=== PATIENT | male | born 1940 | race Asian ===

== ENCOUNTER 2017-11-11 14:37 | Inpatient (IN) | payer MEDICARE, OTHER ==
[2017-11-11] VITALS (23 sets, daily range): BP systolic 101–144; BP diastolic 38–55
[~2017-11-11] VITALS: Ht 177.8 cm; Wt 89.4 kg
--- NOTE | 2017-11-11 14:45 | NUR ---
[facility] FOR HYPOTENSION PRIOR TO DIALYSIS. SEEN BY MD FOR EVAL. RT AT BS. NOTED WITH VENT/TRACH, WITH GTUBE, FLEXISEAL, WOUND DRESSINGS ON BLE. ETHEL MIDLINE 20G SINGLE LUMEN INDUSTRIAL ORDER CLERK. SAFETY AND COMFORT MEASURES PROVIDED. WILL MONITOR.
--- NOTE | 2017-11-11 15:13 | NUR ---
Trach pt received in ER and placed on on mechanical vent with settings per MD order. Pt trach is secure. Vent is plugged into a red outlet, alarms are set and audible, and BVM is at bedside. Addendum: 11/11/17 at 1515 by FRED CORBETT RT Amended: Links added.
[2017-11-11] MEDS ORDERED: CEFEPIME 1 GM in IV D5W 50 ML IV ONE (15:30)
[2017-11-11] MEDS ORDERED: IV NS 0.9% 1,000 ML BAG IV ONE (15:30)
[2017-11-11] MEDS ORDERED: VANCOMYCIN 1 GM in IV D5W 250 ML IV ONE (15:30)
[2017-11-11] MEDS ORDERED: NOREPINEPHRINE 8 MG in IV D5W 500 ML IV ONE (15:30)
--- NOTE | 2017-11-11 15:40 | NUR ---
LAB UNABLE TO DRAW BLOOD AND CULTURES. CHARGE NURSE MADE AWARE.
--- NOTE | 2017-11-11 16:01 | NUR ---
CALLED NURSING DATA ABSTRACTOR REQUESTING A PICC LINE.
[2017-11-11] MEDS ORDERED: CALCIUM CHLORIDE 1,000 MG/10 ML DISP.SYRIN ONE (16:15)
--- NOTE | 2017-11-11 16:23 | NUR ---
ICU 258
--- NOTE | 2017-11-11 16:25 | NUR ---
CALLED [facility] SPOKE TO MARYANNE, HE WILL FAX THE PATIENTS INFO.
--- NOTE | 2017-11-11 16:33 | NUR ---
RECEIVED VERBAL ORDERS FROM MD AT BS FOR CALCIUM AND BICARB IVP. ORDERS CARRIED OUT.
--- NOTE | 2017-11-11 16:41 | NUR ---
PICC LINE NURSE AT BS. TO SIGN THE PICC LINE CONSENT.
--- NOTE | 2017-11-11 16:44 | NUR ---
CALLED [facility] THEY WILL FAX THE PATIENTS INFO.
--- NOTE | 2017-11-11 17:00 | NUR ---
PICC LINE NURSE UNABLE TO INSERT A PICC LINE, RT CALLED FOR A CENTRAL LINE INSERTION BY DR SAM
--- NOTE | 2017-11-11 17:29 | NUR ---
CALLED [facility], HOSPITALIST PAGED.
[2017-11-11 17:43] LABS: BASOPHILS % (AUTO) 0.1 % (0.0-2.0); EOSINOPHILS % (AUTO) 1.5 % (0.0-6.0); HEMATOCRIT 29 % (39-51); HEMOGLOBIN 9.1 g/dL (13.5-17.5); LYMPHOCYTES # (AUTO) 1.8 /CMM (0.8-4.8); LYMPHOCYTES % (AUTO) 7.8 % (20.0-44.0); MEAN CORPUSCULAR HEMOGLOBIN 29 PG (26.0-33.0); MEAN CORPUSCULAR HGB CONC 32 g/dl (31.0-36.0); MEAN CORPUSCULAR VOLUME 93 fL (80-96); MONOCYTES # (AUTO) 0.8 /CMM (0.1-1.30); MONOCYTES % (AUTO) 3.4 % (2.0-12.0); NEUTROPHILS # (AUTO) 20.5 /CMM (1.8-8.9); NEUTROPHILS % (AUTO) 87.2 % (43.0-81.0); PLATELET COUNT (AUTO) 112 /CMM (150-450); RDW COEFFICIENT OF VARIATION 24.5 (11.5-15.0); RED BLOOD CELL COUNT(AUTO) 3.08 MIL/uL (4.5-6.0); WHITE BLOOD COUNT (AUTO) 23.5 K/uL (4.3-11.0)
[2017-11-11] MEDS ORDERED: INSU100V11 SQ (17:44)
[2017-11-11] MEDS ORDERED: ZINC220T GT (17:44)
[2017-11-11] MEDS ORDERED: VITA1TAB20 GT (17:44)
[2017-11-11] MEDS ORDERED: HYDR-552 GT (17:44)
[2017-11-11] MEDS ORDERED: ACET-868 GT (17:44)
[2017-11-11] MEDS ORDERED: AMIO200T4 GT (17:44)
[2017-11-11] MEDS ORDERED: ATOR20TA GT (17:44)
[2017-11-11] MEDS ORDERED: MULT-213 GT (17:44)
[2017-11-11] MEDS ORDERED: ASPI-1169 GT (17:44)
[2017-11-11] MEDS ORDERED: ASCO500T9 GT (17:44)
[2017-11-11] MEDS ORDERED: SEVE0.8P3 PO (17:44)
[2017-11-11] MEDS ORDERED: CALC667C6 GT (17:44)
[2017-11-11] MEDS ORDERED: LOPE2CAP GT (17:44)
[2017-11-11] MEDS ORDERED: CLOP75TA15 PO (17:44)
[2017-11-11] MEDS ORDERED: LABE100T5 GT (17:44)
--- NOTE | 2017-11-11 17:45 | NUR ---
REPORT GIVEN TO VIKAS NEWBERRY FOR ICU 258.
[2017-11-11 17:56] LABS: CALCIUM, SERUM 9.5 mg/dL (8.5-10.1); CARBON DIOXIDE 27 mmol/L (21-32); CHLORIDE 104 mmol/L (98-107); CREATININE 3.6 mg/dL (0.6-1.3); GLUCOSE 99 mg/dL (74-106); INR 1.3 (0.85-1.15); POTASSIUM 3.5 mmol/L (3.5-5.1); SODIUM SERUM 138 mmol/L (136-145); UREA NITROGEN, BLOOD 50 mg/dL (7-18)
[2017-11-11 18:01] LABS: ALANINE AMINOTRANSFERASE 11 U/L (12-78); ALBUMIN 1.6 g/dL (3.4-5.0); ALKALINE PHOSPHATASE 183 U/L (46-116); ASPARTATE AMINOTRANSFERASE 23 U/L (15-37); BILIRUBIN,DIRECT 0.3 mg/dL (0.0-0.2); BILIRUBIN,TOTAL 0.8 mg/dL (0.2-1.0); LIPASE 255 U/L (73-393); TOTAL PROTEIN, SERUM 5.1 g/dL (6.4-8.2)
[2017-11-11] MEDS ORDERED: NOREPINEPHRINE 8 MG in IV D5W 500 ML IV PRN (18:30)
[2017-11-11] MEDS ORDERED: ACETAMINOPHEN 650 MG/20.3 ML UDC GT PRN (18:30)
[2017-11-11] MEDS ORDERED: ONDANSETRON HCL/PF 4 MG/2 ML VIAL IVP PRN (18:30)
[2017-11-11] MEDS ORDERED: DEXTROSE 50%-WATER 50 ML DISP.SYRIN IV PRN (18:30)
[2017-11-11] MEDS ORDERED: ACETAMINOPHEN 325 MG TABLET PO PRN ×2 (18:30)
[2017-11-11] MEDS ORDERED: INSULIN REGULAR, HUMAN 100 UNIT/ML 3 ML VIAL SQ SCH (18:30)
[2017-11-11] MEDS: BLOOD SUGAR DIAGNOSTIC 1 EACH STRIP IN SCH ×2 (18:30→23:48)
[2017-11-11] MEDS ORDERED: FEE PK DOSING 1 MIN EA MC ONE (18:56)
[2017-11-11] MEDS ORDERED: LOPERAMIDE HCL UDC(2 MG/10 ML) 2 MG/10 ML UDC GT PRN (19:00)
[2017-11-11] MEDS: NOREPINEPHRINE 8 MG in IV D5W 500 ML IV PRN (19:00)
--- NOTE | 2017-11-11 19:00 | NUR ---
FINANCIAL ADMINISTRATION OFFICER NOTE RCVD PT ADMITTED FROM ER. PT NON-RESPONSIVE, ABLE TO OPEN EYES, NOT FOLLOWING COMMANDS, SR ON TELE. TOLERATING ORDERED VENT SETTINGS. PEG CLAMPED, FLEXISEAL IN PLACE DRAINING LIQUID BROWN STOOL. MULTIPLE WOUND PRESENT ON ADMISSION, PICTURES TAKEN PER PROTOCOL. RIGHT UPPER CHEST CENTRAL LINE IN PLACE DRESSING CHANGED. ETHEL # [address] PT'S CARE ENDORSED TO WIRE WHEELER RN FOR CONTINUITY OF CARE. BED IN LOW AND LOCKED POSITION. Addendum: 11/11/17 at 2001 by AMIE HARDY RN PT WAS HYPOTHERMIC ON ADMISSION BEAR RENNY ORDERED, LEVO INFUSING. SBP STABLE. KCI IN PLACE.
--- NOTE | 2017-11-11 19:30 | NUR ---
MEMBER SERVICE REPRESENTATIVE NOTE RESUMED ADMISSION OF THIS PATIENT. RECEIVED PATIENT IN BED, EYES CLOSED, PT NON-RESPONSIVE, ABLE TO OPEN EYES TO DEEP PAIN, NOT FOLLOWING COMMANDS, SR ON COOKING SHOW HOST WITH BBB. TRACH MIDLINE AND INTACT, SHILEY 8, TOLERATING ORDERED VENT SETTINGS. PEG CLAMPED, FLEXISEAL IN PLACE DRAINING LIQUID BROWN STOOL. MULTIPLE WOUND PRESENT ON ADMISSION, PICTURES TAKEN PER PROTOCOL. RIGHT UPPER CHEST CENTRAL LINE IN PLACE DRESSING C/D/I, LEVOPHED CURRENTLY INFUSING @ 12MCG/MIN. ETHEL #[address] FLUSHED WITH NS, FREE FROM ANY S/S OF INFILTRATION OR PHLEBITIS. CALL LIGHT LEFT WITHIN EASY REACH, BED IN LOWEST AND LOCKED POSITION. WILL CONTINUE TO CLOSELY MONITOR
[2017-11-11 20:00] LABS: BAND % (MANUAL) 3 % (0.0-5.0); EOSINOPHILS % (MANUAL) 2 % (0-4); LYMPHOCYTES % (MANUAL) 7 % (16-48); MONOCYTES % (MANUAL) 2 % (0-11.0); NEUTROPHILS % (MANUAL) 86 (42-76)
[2017-11-11] MEDS: INSULIN REGULAR, HUMAN 100 UNIT/ML 3 ML VIAL SQ PRN ×2 (20:23→23:50)
[2017-11-11] MEDS: PIPERACILLIN /TAZOBACTAM 2.25 G in IV D5W 50 ML IV SCH (20:25)
[2017-11-11] MEDS: SEVELAMER CARBONATE 0.8 GM POWD.PACK PO SCH (20:26)
[2017-11-11 20:38] LABS: TROPONIN I < 0.017 ng/mL (0.00-0.056)
--- NOTE | 2017-11-11 21:29 | NUR ---
RECEIVED PT TRACHED ON VENT. PT HAS SHLY 8. NO RESP DISTRESS. PT TOLERATING VENT SETTINGS. SX'D FOR SML AMT OF THIN WHITE SECRETIONS. VENT ALARMS SET AND AUDIBLE. TRACH SECURED, CUFF WATER PUMP OPERATOR. VENT PLUGGED INTO RED OUTLET. WILL CONTINUE TO MONITOR. Addendum: 11/11/17 at 2131 by ELIDIA ZAFAR RT Amended: Links added.
--- NOTE | 2017-11-11 22:03 | NUR ---
RN NOTES SPOKE TO DR PRETTY TO CLARIFY DIET ORDERS. AT [facility], PATIENT ON NEPRO @ 45ML/HR X16 HOURS DAILY. PER DR PRETTY, CONTINUE TUBE FEEDING. DR PRETTY ALSO NOTIFIED REGARDING URINE STUDIES ORDERED, PATIENT SEEMS ANURIC, NO URINE OUTPUT SINCE START OF SHIFT. DR PRETTY WITH ORDER TO SCAN BLADDER, AND OK TO INSERT IN & OUT ENAMORADO TO OBTAIN SAMPLE IF AMPLE URINE IN BLADDER. ALL ORDERS READ BACK FOR CLARIFICATION. WILL CARRY OUT ALL NEW ORDERS AND CONTINUE TO CLOSELY MONITOR
[2017-11-12] VITALS (91 sets, daily range): BP systolic 88–152; BP diastolic 34–70
[2017-11-12] MEDS ORDERED: PIPERACILLIN /TAZOBACTAM 3.375 G in IV D5W 50 ML IV SCH ×2
[2017-11-12] MEDS: NOREPINEPHRINE 8 MG in IV D5W 500 ML IV PRN (02:54)
--- NOTE | 2017-11-12 03:22 | NUR ---
RN NOTES CALLED CLAIMS VICE PRESIDENT PARIS TO FOLLOW UP REGARDING SPECIALTY MATTRESS, ORDER FAXED PREVIOUSLY. PER PARIS, THE SPECIALTY MATTRESS WILL BE AVAILABLE THIS MORNING AROUND 8AM-9AM. WILL CONTINUE TO CLOSELY MONITOR
[2017-11-12 05:08] LABS: BASOPHILS % (AUTO) 0.2 % (0.0-2.0); EOSINOPHILS % (AUTO) 0.8 % (0.0-6.0); HEMATOCRIT 27 % (39-51); HEMOGLOBIN 8.3 g/dL (13.5-17.5); LYMPHOCYTES # (AUTO) 1.1 /CMM (0.8-4.8); MEAN CORPUSCULAR HEMOGLOBIN 30 PG (26.0-33.0); MEAN CORPUSCULAR HGB CONC 31 g/dl (31.0-36.0); MEAN CORPUSCULAR VOLUME 94 fL (80-96); MONOCYTES # (AUTO) 0.5 /CMM (0.1-1.30); MONOCYTES % (AUTO) 2.2 % (2.0-12.0); NEUTROPHILS # (AUTO) 20.1 /CMM (1.8-8.9); NEUTROPHILS % (AUTO) 91.8 % (43.0-81.0); PLATELET COUNT (AUTO) 126 /CMM (150-450); RDW COEFFICIENT OF VARIATION 25.5 (11.5-15.0); RED BLOOD CELL COUNT(AUTO) 2.82 MIL/uL (4.5-6.0); WHITE BLOOD COUNT (AUTO) 21.9 K/uL (4.3-11.0)
[2017-11-12 05:13] LABS: CALCIUM, SERUM 9.1 mg/dL (8.5-10.1); CARBON DIOXIDE 26 mmol/L (21-32); CHLORIDE 101 mmol/L (98-107); CREATININE 3.7 mg/dL (0.6-1.3); GLUCOSE 156 mg/dL (74-106); MAGNESIUM 2.2 mg/dL (1.8-2.4); PHOSPHORUS 3.1 mg/dL (2.5-4.9); POTASSIUM 3.6 mmol/L (3.5-5.1); SODIUM SERUM 137 mmol/L (136-145); UREA NITROGEN, BLOOD 53 mg/dL (7-18)
[2017-11-12] MEDS: PIPERACILLIN /TAZOBACTAM 2.25 G in IV D5W 50 ML IV SCH ×3 (05:25→20:28)
[2017-11-12] MEDS: BLOOD SUGAR DIAGNOSTIC 1 EACH STRIP IN SCH ×4 (05:25→23:32)
[2017-11-12] MEDS: NEPRO 1,000 ML BOTTLE GT PRN ×2 (05:25→17:19)
[2017-11-12] MEDS: SEVELAMER CARBONATE 0.8 GM POWD.PACK PO SCH ×3 (05:25→20:28)
[2017-11-12 05:26] LABS: HDL CHOLESTEROL 19 mg/dL (40-60); LDL 10 mg/dL (0-99); THYROID STIMULATING HORMONE 13.515 uIU/mL (0.358-3.74); TRIGLYCERIDES 55 mg/dL (30-150)
[2017-11-12 05:27] LABS: CHOLESTEROL < 50 mg/dL (<200)
[2017-11-12] MEDS: INSULIN REGULAR, HUMAN 100 UNIT/ML 3 ML VIAL SQ PRN ×4 (05:30→23:35)
[2017-11-12 06:24] LABS: EOSINOPHILS % (MANUAL) 1 % (0-4); LYMPHOCYTES % (MANUAL) 4 % (16-48); MONOCYTES % (MANUAL) 1 % (0-11.0); NEUTROPHILS % (MANUAL) 94 (42-76)
--- NOTE | 2017-11-12 07:00 | NUR ---
RN NOTES PATIENT'S CORE TEMP 98.1, CONTINUES ON JUDIT HUGGER. CONTINUES ON LEVOPHED, CURRENTLY RUNNING @ 9MCG/MIN THROUGH THE RIGHT CHEST WALL TLC. NO URINE OUTPUT THROUGHOUT THE SHIFT, FLEXISEAL REMAINS IN PLACE, DRAINING WATERY BROWN STOOL. SPECIMEN COLLECTED AND SENT TO LAB. PATIENT STILL NEEDS SPECIALTY MATTRESS. PER BIOMATERIALS ENGINEER PARIS, SPECIALTY MATTRESS WILL BE AVAILABLE SOON CENTRAL SUPPLY STAFF WILL ARRIVE SHORTLY. WILL ENDORSE THE PATIENT TO THE AM SHIFT NURSE FOR CONTINUITY OF CARE.
--- NOTE | 2017-11-12 07:15 | NUR ---
PRODUCTION DIRECTOR NOTES RECEIVED PATIENT NON VERBAL , OPENS EYES , DOESN'T FOLLOW COMMANDS , RESPONSIVE TO PAIN STIMULI , NOT IN ACUTE DISTRESS , RESPIRATIONS EVEN AND UNLABORED WITH SPO2 OF 100% VIA MECHANICAL VENT SETTINGS ORDERED , TRACH OF SHILEY # [address] , SR 80 WITH BBB ON BEDSIDE MONITOR , GT PATENT AND INTACT WITH NEPHRO @ 45ML/HR TOLERATING WELL WITH NO RESIDUALS NOTED , FLEXI SEAL INTACT DRAINING VIA GRAVITY , RIGHT SUBCLAVIAN TLC WITH NS @ TKO, LEVOPHED @ 10MCG/MIN INFUSING WELL , KULDEEP AV SHUNT WITH BRUIT AND THRILL , ALL NEEDS ATTENDED , BED ON LOW AND LOCKED POSITION , SIDE RAILS X2 , CALL LIGHT WITHIN REACH , HOB @ 35 , WILL CONTINUE TO MONITOR ,
--- NOTE | 2017-11-12 08:30 | NUR ---
RT PATIENT REC'D TRACHED ON [facility] VENT WITH ORDERED SETTINGS. VENT ALARMS CHECKED + AUDIBLE. TRACH SECURE AND IN PROPER POSITION. AIRWAY SUCTIONED WITH MODERATE AMOUNT OF LOVE SEMITHICK SECRETIONS. B/S DIM COARSE. PATIENT NON VERBAL, NON RESPONSIVE, IN CRITICAL CONDITION. AMBU BAG AT HOB Addendum: 11/12/17 at 1309 by BRISEYDA BAH RT Amended: Links added.
[2017-11-12] MEDS: AMIODARONE HCL 200 MG TABLET GT SCH ×2 (08:56→17:19)
[2017-11-12] MEDS: CLOPIDOGREL BISULFATE 75 MG TABLET GT SCH (08:57)
[2017-11-12] MEDS: ASPIRIN 81 MG TAB.CHEW GT SCH (08:57)
[2017-11-12] MEDS: PANTOPRAZOLE 40 MG VIAL IV SCH (08:57)
[2017-11-12] MEDS: ZINC SULFATE 220 MG CAPSULE GT SCH (08:57)
[2017-11-12] MEDS: CALCIUM ACETATE 667 MG TABLET GT SCH ×3 (08:57→17:19)
[2017-11-12] MEDS: MULTIVIT, IRON, MIN NO. 8, FA 1 TAB GT SCH (08:57)
[2017-11-12] MEDS: ASCORBIC ACID 500 MG TABLET GT SCH ×2 (08:57→17:19)
[2017-11-12] MEDS: VITAMIN B COMP W-C 1 TAB TABLET GT SCH (08:57)
[2017-11-12] MEDS: HYDROCORTISONE SOD SUCCINATE 100 MG/2 ML VIAL IV SCH ×3 (09:09→17:20)
[2017-11-12 09:29] LABS: ABG BASE EXCESS -0.4 mmol/L; ABG OXYGEN SATURATION 86.8 % (92.0-98.5); ABG PCO2 30.5 mmHg (35.0-45.0); ABG PH 7.487 (7.350-7.450); ABG PO2 50.7 mmHg (75.0-100.0); COHb 0.3 % (0.5-1.5); O2Hb 85.7 % (94.0-97.0); SITE, ABG Left Brachial
--- NOTE | 2017-11-12 09:45 | NUR ---
SYSTEMS LIBRARIAN NOTES PT STABLE PRIOR TO HD , VSS , ON LEVOPHED @ 16MCG/MIN ,AFEBRILE , WILL CONTINUE TO MONITOR
--- NOTE | 2017-11-12 10:21 | NUR ---
STORE ADMINISTRATOR NOTES JUDIT ALVA , PT CORE TEMP IS 98.1F
--- NOTE | 2017-11-12 10:21 | NUR ---
CABLE WORKER HELPER NOTES STOOL C DIFF SENT TO LAB
[2017-11-12] MEDS ORDERED: diphenhydrAMINE HCL 50 MG/ML VIAL IV PRN (12:00)
--- NOTE | 2017-11-12 12:30 | NUR ---
PACKAGING SALES REPRESENTATIVE NOTES PT STABLE S/P HD TOLERATED WELL , NO OUTPUT NOTED , ON LEVOPHED @ 16MCG/MIN , VANCOMYCIN POST HD HELD , VANCO THROUGH OF
[2017-11-12] MEDS: VANCOMYCIN HCL 125 MG/2.5 ML ORAL.SUSP GT SCH ×3 (12:44→23:22)
--- NOTE | 2017-11-12 20:33 | NUR ---
RECEIVED PT TRACHED ON VENT. PT HAS SHLY 8. NO RESP DISTRESS. PT TOLERATING VENT SETTINGS. SX'D FOR MOD AMT OF THIN WHITE SECRETIONS. VENT ALARMS SET AND AUDIBLE. TRACH SECURED, CUFF OIL OPERATOR. VENT PLUGGED INTO RED OUTLET. WILL CONTINUE TO MONITOR. Addendum: 11/12/17 at 2032 by ELIDIA ZAFAR RT Amended: Links added.
[2017-11-12] MEDS: ATORVASTATIN 10 MG TABLET GT SCH (21:42)
--- NOTE | 2017-11-12 23:00 | NUR ---
RN NOTES RECEIVED REPORT AND PATIENT FROM ROHITH STAUFFER. PATIENT IS CONNECTED TO MONITOR WITH CONTINUOUS VITAL SIGNS MONITORING. VS WNL. ON GTUBE FEEDING WITH HOB ELEVATED. WILL CONTINUE TO MONITOR
[2017-11-13] VITALS (33 sets, daily range): BP systolic 119–153; BP diastolic 52–79
[2017-11-13] MEDS: VANCOMYCIN HCL 125 MG/2.5 ML ORAL.SUSP GT SCH ×4 (05:08→23:24)
[2017-11-13] MEDS: PIPERACILLIN /TAZOBACTAM 2.25 G in IV D5W 50 ML IV SCH ×3 (05:08→21:12)
[2017-11-13] MEDS: SEVELAMER CARBONATE 0.8 GM POWD.PACK PO SCH ×3 (05:09→21:12)
[2017-11-13] MEDS: BLOOD SUGAR DIAGNOSTIC 1 EACH STRIP IN SCH ×4 (05:23→23:25)
[2017-11-13] MEDS: INSULIN REGULAR, HUMAN 100 UNIT/ML 3 ML VIAL SQ PRN ×4 (05:25→23:24)
[2017-11-13 06:43] LABS: HEMATOCRIT 23 % (39-51); HEMOGLOBIN 7.3 g/dL (13.5-17.5); LYMPHOCYTES # (AUTO) 0.9 /CMM (0.8-4.8); LYMPHOCYTES % (AUTO) 4.7 % (20.0-44.0); MEAN CORPUSCULAR HEMOGLOBIN 30 PG (26.0-33.0); MEAN CORPUSCULAR HGB CONC 31 g/dl (31.0-36.0); MEAN CORPUSCULAR VOLUME 95 fL (80-96); MONOCYTES # (AUTO) 0.2 /CMM (0.1-1.30); MONOCYTES % (AUTO) 0.9 % (2.0-12.0); NEUTROPHILS # (AUTO) 18.3 /CMM (1.8-8.9); NEUTROPHILS % (AUTO) 94.4 % (43.0-81.0); PLATELET COUNT (AUTO) 132 /CMM (150-450); RDW COEFFICIENT OF VARIATION 25.5 (11.5-15.0); RED BLOOD CELL COUNT(AUTO) 2.44 MIL/uL (4.5-6.0); WHITE BLOOD COUNT (AUTO) 19.4 K/uL (4.3-11.0)
[2017-11-13 07:07] LABS: CALCIUM, SERUM 8.5 mg/dL (8.5-10.1); CARBON DIOXIDE 27 mmol/L (21-32); CHLORIDE 102 mmol/L (98-107); CREATININE 3.2 mg/dL (0.6-1.3); GLUCOSE 266 mg/dL (74-106); MAGNESIUM 2.4 mg/dL (1.8-2.4); PHOSPHORUS 2.2 mg/dL (2.5-4.9); POTASSIUM 3.9 mmol/L (3.5-5.1); SODIUM SERUM 139 mmol/L (136-145); UREA NITROGEN, BLOOD 47 mg/dL (7-18)
--- NOTE | 2017-11-13 07:18 | NUR ---
CHRISTMAS TREE CONTRACTOR NOTES RECEIVED PATIENT NON VERBAL , OPENS EYES , DOESN'T FOLLOW COMMANDS , RESPONSIVE TO PAIN STIMULI , NOT IN ACUTE DISTRESS , RESPIRATIONS EVEN AND UNLABORED WITH SPO2 OF 100% VIA MECHANICAL VENT SETTINGS ORDERED , TRACH OF ELENALEY # [address] , SR 75 WITH BBB ON BEDSIDE MONITOR , GT PATENT AND INTACT WITH NEPHRO @ 45ML/HR TOLERATING WELL WITH NO RESIDUALS NOTED , FLEXI SEAL INTACT DRAINING VIA GRAVITY , RIGHT SUBCLAVIAN TLC WITH NS @ TKO, , KULDEEP AV SHUNT WITH BRUIT AND THRILL , ALL NEEDS ATTENDED , BED ON LOW AND LOCKED POSITION , SIDE RAILS X2 , CALL LIGHT WITHIN REACH , HOB @ 35 , WILL CONTINUE TO MONITOR ,
[2017-11-13] MEDS: MULTIVIT, IRON, MIN NO. 8, FA 1 TAB GT SCH (08:22)
[2017-11-13] MEDS: ASCORBIC ACID 500 MG TABLET GT SCH ×2 (08:22→16:23)
[2017-11-13] MEDS: HYDROCORTISONE SOD SUCCINATE 100 MG/2 ML VIAL IV SCH ×3 (08:22→16:24)
[2017-11-13] MEDS: CLOPIDOGREL BISULFATE 75 MG TABLET GT SCH ×2 (08:22→09:00)
[2017-11-13] MEDS: CALCIUM ACETATE 667 MG TABLET GT SCH ×3 (08:22→16:23)
[2017-11-13] MEDS: AMIODARONE HCL 200 MG TABLET GT SCH ×2 (08:22→16:24)
[2017-11-13] MEDS: ASPIRIN 81 MG TAB.CHEW GT SCH ×2 (08:22→09:00)
[2017-11-13] MEDS: VITAMIN B COMP W-C 1 TAB TABLET GT SCH (08:22)
[2017-11-13] MEDS: ZINC SULFATE 220 MG CAPSULE GT SCH (08:25)
[2017-11-13] MEDS: PANTOPRAZOLE 40 MG VIAL IV SCH (08:55)
[2017-11-13] MEDS ORDERED: *INSULIN REGULAR(HUMULIN R)HUM 100 UNIT/ML VIAL SQ PRN (09:00)
[2017-11-13] MEDS ORDERED: INSULIN REGULAR, HUMAN 100 UNIT/ML 3 ML VIAL SQ PRN (09:00)
[2017-11-13] MEDS ORDERED: DEXTROSE 50%-WATER 50 ML DISP.SYRIN IV PRN ×2 (09:00→09:30)
--- NOTE | 2017-11-13 09:00 | NUR ---
OCCUPATIONAL SAFETY SPECIALIST NOTES ASPIRIN AND PLAVIX ORDERED HELD , HGB IS DROPPING WITH NO ACTIVE BLEEDING NOTED , WILL CONTINUE TO MONITOR
--- NOTE | 2017-11-13 10:30 | NUR ---
HELP DESK SUPPORT NOTES SEEN AND EVALUATED BY DR ESPINOZA , DISCUSSED LABS , TOLERATING CURRENT VENT SETTINGS WITH NO DISTRESS , WITH ONGOING HD , OFF PRESSORS SINCE 11-12 , LENNYEBMD VERONICA AWARE .
[2017-11-13] MEDS ORDERED: BLOOD SUGAR DIAGNOSTIC 1 EACH STRIP VI SCH (12:00)
[2017-11-13 12:02] LABS: OCCULT BLOOD STOOL NEGATIVE (NEGATIVE)
--- NOTE | 2017-11-13 12:15 | NUR ---
PLATEN PRESS OPERATOR APPRENTICE NOTES PATIENT STABLE S/P HD , REMOVED 1500ML FLUIDS , VSS AFEBRILE BP OF 121/54 TOLERATED WELL , KULDEEP AV FISTULA DRESSING C/D/I WITH NO SIGNS OF ACTIVE BLEEDING , WILL ADMINISTER VANCOMYCIN POST HD ,
--- NOTE | 2017-11-13 13:33 | NUR ---
WILDLIFE PROTECTOR NOTES SEEN AND EVALUATED BY WILLOW URBINA , DISCUSSED LABS , HELD ASPIRIN AND PLAVIX DUE TO LOW H/H WITH NO SIGNS OF BLEEDING , S/P HD 1500 TOLERATED WELL , OFF PRESSORS @ 1600 11/12/17 , AFEBRILE , VSS , STOOL OB NEGATIVE , MD AWARE .
--- NOTE | 2017-11-13 13:46 | NUR ---
SWITCH BOX INSTALLER NOTES CALLED [facility] SPOKE WITH SIMONE , VERIFIED IF PT HAS ANY FAMILY MEMBERS TO CALL FOR A CONSENT , PER SIMONE PT HAS A RESPONSIBLE DEMOCRAT UNDER DR TIERRA MUNIZ , PAGED DR MUNIZ @ [phone] AND [phone] , AWAITING FOR CALL BACK
[2017-11-13] MEDS: DAKINS QUARTER STRENGTH (0.125%) 480 ML BOTTLE TOP SCH (14:16)
[2017-11-13] MEDS: VANCOMYCIN 500 MG in IV D5W 100 ML IV PRN (14:16)
[2017-11-13] MEDS ORDERED: NEUTRA PHOS 1 POWD.PACKET GT ONE (17:00)
[2017-11-13] MEDS ORDERED: Z GUARD REMEDY 4 OZ OINT TP PRN (17:30)
[2017-11-13] MEDS ORDERED: LIDOCAINE 1%-EPI 1:100,000 20 ML VIAL TP ONE (17:30)
--- NOTE | 2017-11-13 17:30 | NUR ---
TOURIST CABIN KEEPER NOTES WILLOW URBINA SIGNED THE PROCEDURE CONSENT FOR DEBRIDEMENT OF BILATERAL BUTTOCKS , SACRUM , GROIN , BILATERAL ELBOWS UPPER BACK , BILATERAL HANDS AND FINGER , PT HAS NO RELATIVES OR NEXT OF KIN, DR WALTER CRUZ SEEN AND EVALUATED THE PATIENT WOUNDS , AWAITING FOR WOUND TX ORDERES DR BHARDWAJ AT BEDSIDE FOR DEBRIDEMENT OF BILATERAL BUTTOCKS , SACRUM , GROIN , BILATERAL ELBOWS UPPER BACK , BILATERAL HANDS AND FINGER , DISCUSSED LABS , VSS , WILL CONTINUE TO MONITOR ,
--- NOTE | 2017-11-13 18:00 | NUR ---
ANIMAL HUSBANDMAN NOTES PT STABLE S/P DEBRIDEMENTOF BILATERAL BUTTOCKS , SACRUM , GROIN , BILATERAL ELBOWS UPPER BACK , BILATERAL HANDS AND FINGER , NOTED WITH MODERATED AMOUNT OF BLEEDING , DRESSING CHANGED , SACRAL WOUND CULTURE OBTAINED , LABELED AND SENT TO LAB , VSS , AWAITING FOR WOUND TX ORDERS
[2017-11-13] MEDS: NEPRO 1,000 ML BOTTLE GT PRN (18:38)
[2017-11-13] MEDS ORDERED: HYDROGEL DRESSING 90 GM TUBE TP PRN (19:00)
--- NOTE | 2017-11-13 19:00 | NUR ---
RN INITIAL NOTES RECEIVED THE PATIENT OBTUNDED ON BED, OPENS EYES TO PAIN STIMULI ONLY. ON VENT WITH SETTINGS AC 14, TV 550, FIO2 40%, PEEP 0, SHILEY 8, SATURATING WELL, NO S/S OF RESP DISTRESS. PT IS SR ON THE MONITOR, HR 90'S. FLEXISEAL IS INTACT WITH BROWN LIQUID STOOL NOTED. RIGHT UPPER AV FISTULA NOTED. PT IS ANURIC, ON DIAPERS. GT TO NEPRO @ 45MLS/HR, NO RESIDUALS. RIGHT SUBCLAVIAN TLC FLUSHED AND PATENT, NO S/S OF INFILTRATION/INFECTION, DRESSING CDI. BED LOW AND LOCKED, SIDERAILS UP, BED ALARM ON. WILL MONITOR CLOSELY
--- NOTE | 2017-11-13 20:04 | NUR ---
RECEIVED PT TRACHED ON VENT. PT HAS SHLY 8. NO RESP DISTRESS. PT TOLERATING VENT SETTINGS. SX'D FOR MOD AMT OF THIN WHITE SECRETIONS. VENT ALARMS SET AND AUDIBLE. TRACH SECURED, CUFF BROADCAST TRANSMITTER OPERATOR. VENT PLUGGED INTO RED OUTLET. WILL CONTINUE TO MONITOR. Addendum: 11/13/17 at 2007 by MARITO LOPEZ RT Amended: Links added.
[2017-11-13] MEDS: ATORVASTATIN 10 MG TABLET GT SCH (21:12)
[2017-11-14] VITALS (39 sets, daily range): BP systolic 120–155; BP diastolic 52–87
[2017-11-14 04:31] LABS: HEMATOCRIT 21 % (39-51); LYMPHOCYTES # (AUTO) 0.7 /CMM (0.8-4.8); LYMPHOCYTES % (AUTO) 3.6 % (20.0-44.0); MEAN CORPUSCULAR HEMOGLOBIN 30 PG (26.0-33.0); MEAN CORPUSCULAR HGB CONC 31 g/dl (31.0-36.0); MEAN CORPUSCULAR VOLUME 95 fL (80-96); MONOCYTES # (AUTO) 0.3 /CMM (0.1-1.30); MONOCYTES % (AUTO) 1.6 % (2.0-12.0); NEUTROPHILS # (AUTO) 17.4 /CMM (1.8-8.9); NEUTROPHILS % (AUTO) 94.8 % (43.0-81.0); PLATELET COUNT (AUTO) 164 /CMM (150-450); RDW COEFFICIENT OF VARIATION 25.3 (11.5-15.0); RED BLOOD CELL COUNT(AUTO) 2.19 MIL/uL (4.5-6.0); WHITE BLOOD COUNT (AUTO) 18.4 K/uL (4.3-11.0)
[2017-11-14 04:43] LABS: CARBON DIOXIDE 28 mmol/L (21-32); CHLORIDE 103 mmol/L (98-107); CREATININE 2.7 mg/dL (0.6-1.3); GLUCOSE 316 mg/dL (74-106); MAGNESIUM 2.5 mg/dL (1.8-2.4); PHOSPHORUS 2.1 mg/dL (2.5-4.9); POTASSIUM 3.8 mmol/L (3.5-5.1); SODIUM SERUM 140 mmol/L (136-145); UREA NITROGEN, BLOOD 43 mg/dL (7-18)
[2017-11-14 04:59] LABS: HEMOGLOBIN 6.5 g/dL (13.5-17.5)
[2017-11-14 05:00] LABS: NEUTROPHILS % (MANUAL) 97 (42-76)
[2017-11-14 05:01] LABS: LYMPHOCYTES % (MANUAL) 2 % (16-48); MONOCYTES % (MANUAL) 1 % (0-11.0)
[2017-11-14] MEDS: BLOOD SUGAR DIAGNOSTIC 1 EACH STRIP IN SCH ×3 (05:15→18:16)
[2017-11-14] MEDS: INSULIN REGULAR, HUMAN 100 UNIT/ML 3 ML VIAL SQ PRN ×3 (05:20→18:15)
[2017-11-14] MEDS: VANCOMYCIN HCL 125 MG/2.5 ML ORAL.SUSP GT SCH ×3 (05:21→17:16)
[2017-11-14] MEDS: SEVELAMER CARBONATE 0.8 GM POWD.PACK PO SCH ×3 (05:21→21:49)
[2017-11-14] MEDS: PIPERACILLIN /TAZOBACTAM 2.25 G in IV D5W 50 ML IV SCH ×3 (05:21→21:49)
--- NOTE | 2017-11-14 05:53 | NUR ---
RN NOTES DR PRETTY NOTIFIED OF HGB 6.5 AND HCT 21; PER MD, REPEAT STAT HGB/HCT. IF HGB < 7, TRANSFUSE 2 UNITS PRBC
--- NOTE | 2017-11-14 06:19 | NUR ---
RN NOTES PER DR PRETTY, IF HGB 6.7-6.9, GIVE 1 UNIT PRBC. IF HGB < 6.7, GIVE 2 UNITS PRBC
[2017-11-14 06:55] LABS: HEMOGLOBIN 6.4 g/dL (13.5-17.5)
--- NOTE | 2017-11-14 07:36 | NUR ---
HEMMER AUTOMATIC RECEIVED PATIENT FROM THE PREVIOUS SHIFT. PATENT IS IN BED. RESTING COMFORTABLY. NO ACUTE DISTRESS NOTED. EVEN AND NON LABORED BREATHING PATTERN. TRACH SITE CDI. SUCTION PROVIDED FOR CLEARANCE. VENT SETTINGS REVIEWED AND VERIFIED. TURNED AND REPOSITIONED FOR COMFORT AND WOUND PREVENTION. WILL CONTINUE TO MONITOR AND PROVIDE CARE.
[2017-11-14] MEDS: DAKINS QUARTER STRENGTH (0.125%) 480 ML BOTTLE TOP SCH (08:44)
[2017-11-14] MEDS: PANTOPRAZOLE 40 MG VIAL IV SCH (08:47)
[2017-11-14] MEDS: ZINC SULFATE 220 MG CAPSULE GT SCH (08:48)
[2017-11-14] MEDS: ASCORBIC ACID 500 MG TABLET GT SCH ×2 (08:48→17:14)
[2017-11-14] MEDS: CLOPIDOGREL BISULFATE 75 MG TABLET GT SCH (08:48)
[2017-11-14] MEDS: AMIODARONE HCL 200 MG TABLET GT SCH ×2 (08:48→17:22)
[2017-11-14] MEDS: ASPIRIN 81 MG TAB.CHEW GT SCH (08:48)
[2017-11-14] MEDS: HYDROCORTISONE SOD SUCCINATE 100 MG/2 ML VIAL IV SCH (08:48)
[2017-11-14] MEDS: VITAMIN B COMP W-C 1 TAB TABLET GT SCH (08:48)
[2017-11-14] MEDS: CALCIUM ACETATE 667 MG TABLET GT SCH ×3 (08:48→17:15)
[2017-11-14] MEDS: MULTIVIT, IRON, MIN NO. 8, FA 1 TAB GT SCH (08:48)
--- NOTE | 2017-11-14 09:35 | NUR ---
ENTRY LEVEL MANUFACTURING ENGINEER UNABLE TO CONTACT PATIENT'S FAMILY FOR BLOOD TRANSFUSION CONSENT. BLOOD TRANSFUSION CONSENT FOR MEDICAL NECESSITY SIGNED BY DR. BOWERS.
--- NOTE | 2017-11-14 10:09 | NUR ---
WOUND CARE CONSULT WOUND CARE RECEIVED CONSULT FOR MULTIPLE WOUNDS THROUGHOUT BODY. WOUND CARE WILL DEFER CONSULT AND ALL TREATMENT PLANS TO SURGICAL TEAM WHO ARE CURRENTLY FOLLOWING. PATIENT WITH ALDAIR AT 11, ALL PRESSURE ULCER PREVENTION MEASURES ARE NOTED TO BE IN PLACE. WILL SEE PRN.
--- NOTE | 2017-11-14 14:48 | NUR ---
PULL OUT OPERATOR TRANSFERRED THE PATIENT TO TELE LEVEL OF CARE ON STABLE CONDITIONS.
--- NOTE | 2017-11-14 15:20 | NUR ---
RN NOTES RECEIVED FROM ICU VIA STRETCHER ACCOMPANIED BY 2 ICU STAFF WITH RESPIRATORY DISTRESS OR SHORTNESS OF BREATH. BREATHING EVEN AND UNLABORED. VENT SETTING WELL TOLERATED. NO PHYSICAL MANIFESTATION OF PAIN OR DISCOMFORT. OBTUNDED, NO EYE CONTACT NOTED. STARTED FEEDING, HOB ELEVATED, TOLERATED WELL. G TUBE PATENT AND INTACT. ON FLEXISEAL DRAINING BROWN LIQUID STOOL. KEPT CLEAN AND DRY. WILL CONTINUE TO MONITOR.
[2017-11-14] MEDS ORDERED: NEUTRA PHOS 1 POWD.PACKET GT ONE (16:30)
[2017-11-14] MEDS: ATORVASTATIN 10 MG TABLET GT SCH (21:49)
[2017-11-14] MEDS ORDERED: INSULIN GLARGINE, 100 UNIT/ML CARTRIDGE SQ SCH (22:00)
[2017-11-15] VITALS: BP 122/57
[2017-11-15] MEDS: VANCOMYCIN HCL 125 MG/2.5 ML ORAL.SUSP GT SCH ×5 (00:49→23:56)
[2017-11-15] MEDS: BLOOD SUGAR DIAGNOSTIC 1 EACH STRIP IN SCH ×5 (00:49→23:56)
[2017-11-15] MEDS: INSULIN REGULAR, HUMAN 100 UNIT/ML 3 ML VIAL SQ PRN ×4 (00:58→18:20)
[2017-11-15 04:00] VITALS: BP 121/47
[2017-11-15] MEDS: SEVELAMER CARBONATE 0.8 GM POWD.PACK PO SCH ×3 (05:09→21:07)
[2017-11-15] MEDS: PIPERACILLIN /TAZOBACTAM 2.25 G in IV D5W 50 ML IV SCH ×3 (05:09→21:07)
[2017-11-15 06:48] LABS: BASOPHILS % (AUTO) 0.1 % (0.0-2.0); HEMATOCRIT 22 % (39-51); LYMPHOCYTES # (AUTO) 1.6 /CMM (0.8-4.8); LYMPHOCYTES % (AUTO) 9.9 % (20.0-44.0); MEAN CORPUSCULAR HEMOGLOBIN 30 PG (26.0-33.0); MEAN CORPUSCULAR HGB CONC 32 g/dl (31.0-36.0); MEAN CORPUSCULAR VOLUME 94 fL (80-96); MONOCYTES # (AUTO) 0.6 /CMM (0.1-1.30); MONOCYTES % (AUTO) 3.7 % (2.0-12.0); NEUTROPHILS # (AUTO) 13.5 /CMM (1.8-8.9); NEUTROPHILS % (AUTO) 86.3 % (43.0-81.0); PLATELET COUNT (AUTO) 175 /CMM (150-450); RDW COEFFICIENT OF VARIATION 20.7 (11.5-15.0); RED BLOOD CELL COUNT(AUTO) 2.32 MIL/uL (4.5-6.0); WHITE BLOOD COUNT (AUTO) 15.6 K/uL (4.3-11.0)
[2017-11-15 07:01] LABS: HEMOGLOBIN 6.9 g/dL (13.5-17.5)
[2017-11-15 07:02] LABS: CALCIUM, SERUM 7.6 mg/dL (8.5-10.1); CARBON DIOXIDE 26 mmol/L (21-32); CHLORIDE 102 mmol/L (98-107); CREATININE 3.2 mg/dL (0.6-1.3); GLUCOSE 294 mg/dL (74-106); MAGNESIUM 2.5 mg/dL (1.8-2.4); PHOSPHORUS 2.7 mg/dL (2.5-4.9); POTASSIUM 3.5 mmol/L (3.5-5.1); SODIUM SERUM 140 mmol/L (136-145); UREA NITROGEN, BLOOD 66 mg/dL (7-18)
--- NOTE | 2017-11-15 07:43 | NUR ---
TD RN NOTES: RECEIVED PT ON BED WITH NO APPARENT DISTRESS NOTED. NO FACIAL GRIMACING OR ANY SIGNS OF PAIN NOTED. [facility], SETTINGS ORDERED, SATURATING WELL. ON TELE MONITOR, SINUS RHYTHM HR 98BPM. ONGOING HD AT THIS TIME. RECEIVED A CALL FROM LAB REGARDING PATIENT'S HGB 6.9, PATIENT HAS STANDING ORDER TO TRANSFUSE 1PRBC FOR HGB 6.7-6.9. GT INTACT, NO RESIDUAL NOTED AT THIS TIME. ABLE TO TOLERATE FEEDING. HEAD OF BED REMAINED ELEVATED. SAFETY AND FALL PRECAUTIONS OBSERVED AND MAINTAINED. WILL CONTINUE TO MONITOR PT.
[2017-11-15 08:00] VITALS: BP 133/70
--- NOTE | 2017-11-15 08:18 | NUR ---
RECEIVED PT TRACHED ON VENT. PT HAS SHLY 8. NO RESP DISTRESS. PT TOLERATING VENT SETTINGS. SX'D FOR MOD AMT OF THIN WHITE SECRETIONS. VENT ALARMS SET AND AUDIBLE. TRACH SECURED, CUFF REGISTERED NURSE FLOAT POOL. VENT PLUGGED INTO RED OUTLET. Addendum: 11/15/17 at 0820 by PATRICIO FERREIRA RT Amended: Links added.
[2017-11-15] MEDS: AMIODARONE HCL 200 MG TABLET GT SCH ×2 (08:26→17:08)
--- NOTE | 2017-11-15 08:27 | NUR ---
TD RN NOTES: AMIODARONE DUE AT 0900 NOT GIVEN BECAUSE PT HAS ONGOING HD AT THIS TIME.
[2017-11-15] MEDS: PANTOPRAZOLE 40 MG VIAL IV SCH (08:35)
[2017-11-15] MEDS: MULTIVIT, IRON, MIN NO. 8, FA 1 TAB GT SCH (08:35)
[2017-11-15] MEDS: ASPIRIN 81 MG TAB.CHEW GT SCH (08:35)
[2017-11-15] MEDS: ZINC SULFATE 220 MG CAPSULE GT SCH (08:35)
[2017-11-15] MEDS: CALCIUM ACETATE 667 MG TABLET GT SCH ×3 (08:35→16:46)
[2017-11-15] MEDS: VITAMIN B COMP W-C 1 TAB TABLET GT SCH (08:35)
[2017-11-15] MEDS: ASCORBIC ACID 500 MG TABLET GT SCH ×2 (08:35→16:46)
[2017-11-15] MEDS: CLOPIDOGREL BISULFATE 75 MG TABLET GT SCH (08:47)
--- NOTE | 2017-11-15 08:47 | NUR ---
TD RN NOTES: DARBY MILLER NP HOLD PLAVIX.
[2017-11-15 08:49] LABS: BAND % (MANUAL) 1 % (0.0-5.0); LYMPHOCYTES % (MANUAL) 9 % (16-48); MONOCYTES % (MANUAL) 4 % (0-11.0); NEUTROPHILS % (MANUAL) 86 (42-76)
--- NOTE | 2017-11-15 09:00 | NUR ---
TD RN NOTES: PER WILLOW MILLER NP RECHECK CBC AFTER HD, IF HGB STILL LOW TRANSFUSE 1PRBC.
[2017-11-15] MEDS: DAKINS QUARTER STRENGTH (0.125%) 480 ML BOTTLE TOP SCH (09:51)
[2017-11-15] MEDS ORDERED: EPOETIN ALFA (20,000 UNIT) 20,000 UNIT/ML VIAL IV ONE (10:00)
[2017-11-15 10:29] LABS: BASOPHILS % (AUTO) 0.3 % (0.0-2.0); EOSINOPHILS % (AUTO) 0.2 % (0.0-6.0); HEMATOCRIT 23 % (39-51); LYMPHOCYTES # (AUTO) 1.5 /CMM (0.8-4.8); LYMPHOCYTES % (AUTO) 8.3 % (20.0-44.0); MEAN CORPUSCULAR HEMOGLOBIN 29 PG (26.0-33.0); MEAN CORPUSCULAR HGB CONC 31 g/dl (31.0-36.0); MEAN CORPUSCULAR VOLUME 93 fL (80-96); MONOCYTES # (AUTO) 0.7 /CMM (0.1-1.30); MONOCYTES % (AUTO) 4.1 % (2.0-12.0); NEUTROPHILS # (AUTO) 15.3 /CMM (1.8-8.9); NEUTROPHILS % (AUTO) 87.1 % (43.0-81.0); PLATELET COUNT (AUTO) 183 /CMM (150-450); RDW COEFFICIENT OF VARIATION 22.4 (11.5-15.0); RED BLOOD CELL COUNT(AUTO) 2.44 MIL/uL (4.5-6.0); WHITE BLOOD COUNT (AUTO) 17.6 K/uL (4.3-11.0)
--- NOTE | 2017-11-15 11:04 | NUR ---
SHANI NEWBERRY NOTES: HGB 7.0, PER WILLOW MILLER ARMATURE REPAIRER, NO ORDER FOR BLOOD TRANSFUSION. Addendum: 11/15/17 at 1113 by WARD LOYA RN LAB MADE AWARE.
--- NOTE | 2017-11-15 11:21 | NUR ---
TD RN NOTES: PER PHARMACY (RIGOBERTO) OK TO GIVEN VANCOMYCIN ORAL SOLUTION DUE AT 1200.
[2017-11-15 12:00] VITALS: BP 137/64
[2017-11-15 12:02] LABS: BAND % (MANUAL) 2 % (0.0-5.0); LYMPHOCYTES % (MANUAL) 7 % (16-48); MONOCYTES % (MANUAL) 4 % (0-11.0); NEUTROPHILS % (MANUAL) 87 (42-76)
[2017-11-15] MEDS: VANCOMYCIN 500 MG in IV D5W 100 ML IV PRN (12:48)
--- NOTE | 2017-11-15 15:08 | NUR ---
SHANI RN NOTES: PER LAB, NO RESULTS YET FOR SPUTUM GRAM STAIN/CULTURE,
[2017-11-15 16:00] VITALS: BP 140/68
[2017-11-15] MEDS: LACTOBACILLUS RHAMNOSUS GG 1 EACH CAP.SPRINK PO SCH (16:46)
--- NOTE | 2017-11-15 19:00 | NUR ---
Received patient obtunded,with trache to the ventilator on AC mode,responds to pain ,+ COUGH,+gag.Not in any distress,slight movement of right arm noted,no movement on other extremities.With on going tube feeding via G tube,tolerating well with no residuals.TLC via right subclavian.Stable.
--- NOTE | 2017-11-15 19:00 | NUR ---
TD RN NOTES: NO CHANGES NOTED THROUGHOUT THE SHIFT. NO FACIAL GRIMACING OR ANY SIGNS OF PAIN NOTED. SINUS RHYTHM ON TELE MONITOR HR 98BPM. GT INTACT AND PATENT, NO RESIDUAL NOTED AT THIS TIME. NO SIGNS/SYMPTOMS OF ASPIRATION NOTED. [facility], SETTINGS ORDERED, SATURATING WELL. HEAD OF BED ELEVATED. TURNED AND REPOSITIONED PT Q2HRS AND NEEDED. SAFETY AND FALL PRECAUTIONS OBSERVED AND MAINTAINED. WILL ENDORSE TO HIV PREVENTION SPECIALIST FOR CONTINUITY OF CARE.
[2017-11-15 20:00] VITALS: BP_SYST 149; BP_SYST 152; BP_SYST 154; BP_DIAS 68
[2017-11-15] MEDS: ATORVASTATIN 10 MG TABLET GT SCH (21:08)
[2017-11-15] MEDS ORDERED: INSULIN GLARGINE, 100 UNIT/ML CARTRIDGE SQ SCH (22:00)
--- NOTE | 2017-11-15 23:45 | NUR ---
RN ADRIANA NOTE RECEIVED REPORT FROM CARLOS DAVID PRESENTS OBTUNDED, HOB ELEVATED, RESTING COMFORTABLY, TRACH TO MECHANICAL VENT ON SETTINGS ORDERED, NO S/SX OF CARDIAC OR RESPIRATORY DISTRESS NOTED, ON TELE SR/ST, FLEXISEAL DRAINING TO GRAVITY, BROWN STOOL, G TUBE WITH NEPRO @ 45ML/HR, PATENT, SITE KEPT CLEAN AND DRY, R SUBCLAVIAN TLC, PATENT FLUSHING WELL. SAFETY MAINTAINED AT ALL TIMES, CALL LIGHT WITHIN REACH, BED IN LOW LOCKED POSITION, WILL CONTINUE TO MONITOR FRO ANY CHANGES.
[2017-11-16] VITALS: BP 149/68
[2017-11-16] MEDS: INSULIN REGULAR, HUMAN 100 UNIT/ML 3 ML VIAL SQ PRN ×5 (00:03→23:23)
[2017-11-16 04:00] VITALS: BP 138/63
[2017-11-16] MEDS: SEVELAMER CARBONATE 0.8 GM POWD.PACK PO SCH ×3 (05:09→20:27)
[2017-11-16] MEDS: BLOOD SUGAR DIAGNOSTIC 1 EACH STRIP IN SCH ×4 (05:09→23:12)
[2017-11-16] MEDS: NEPRO 1,000 ML BOTTLE GT PRN (05:09)
[2017-11-16] MEDS: VANCOMYCIN HCL 125 MG/2.5 ML ORAL.SUSP GT SCH ×4 (05:09→23:11)
[2017-11-16] MEDS: PIPERACILLIN /TAZOBACTAM 2.25 G in IV D5W 50 ML IV SCH ×2 (05:09→12:07)
[2017-11-16 06:42] LABS: BASOPHILS % (AUTO) 0.2 % (0.0-2.0); EOSINOPHILS % (AUTO) 0.8 % (0.0-6.0); HEMATOCRIT 29 % (39-51); HEMOGLOBIN 9.3 g/dL (13.5-17.5); LYMPHOCYTES # (AUTO) 1.8 /CMM (0.8-4.8); LYMPHOCYTES % (AUTO) 9.3 % (20.0-44.0); MEAN CORPUSCULAR HEMOGLOBIN 31 PG (26.0-33.0); MEAN CORPUSCULAR HGB CONC 32 g/dl (31.0-36.0); MEAN CORPUSCULAR VOLUME 96 fL (80-96); MONOCYTES # (AUTO) 0.4 /CMM (0.1-1.30); MONOCYTES % (AUTO) 2.2 % (2.0-12.0); NEUTROPHILS # (AUTO) 17.1 /CMM (1.8-8.9); NEUTROPHILS % (AUTO) 87.5 % (43.0-81.0); RDW COEFFICIENT OF VARIATION 21.8 (11.5-15.0); WHITE BLOOD COUNT (AUTO) 19.5 K/uL (4.3-11.0)
[2017-11-16 06:56] LABS: CARBON DIOXIDE 28 mmol/L (21-32); CHLORIDE 101 mmol/L (98-107); CREATININE 2.8 mg/dL (0.6-1.3); GLUCOSE 213 mg/dL (74-106); MAGNESIUM 2.6 mg/dL (1.8-2.4); PHOSPHORUS 2.7 mg/dL (2.5-4.9); POTASSIUM 4.4 mmol/L (3.5-5.1); SODIUM SERUM 138 mmol/L (136-145); UREA NITROGEN, BLOOD 58 mg/dL (7-18)
--- NOTE | 2017-11-16 07:15 | NUR ---
RN ADRIANA INITIAL NOTES RECEIVED REPORT AND PATIENT FROM PM NURSE, PATIENT RESTING IN BED, OBTUNDED, NON VERBAL, BEDREST, ON VENT SETTINGS MD ORDERED SATURATING ABOVE 97%, NO SHORTNESS OF BREATHE OR ACUTE DISTRESS NOTED, ON TELE MONITOR SINUS TACHY HEART RATE 103 WITH BBB, FLEXISEAL INTACT, GTUBE FEEDING RUNNING MD ORDERED, RIGHT SUBCLAVIAN ACCESS INTACT, ALL SAFETY MEASURES INITIATED, KCI MATTRESS ON, BED LOW AND LOCKED, SIDE RAILS X2, WILL CONTINUE TO MONITOR.
[2017-11-16 08:00] VITALS: BP 127/79
[2017-11-16 08:38] LABS: PLATELET COUNT (AUTO) 139 /CMM (150-450)
[2017-11-16] MEDS: DAKINS QUARTER STRENGTH (0.125%) 480 ML BOTTLE TOP SCH (09:27)
[2017-11-16] MEDS: VITAMIN B COMP W-C 1 TAB TABLET GT SCH (09:28)
[2017-11-16] MEDS: PANTOPRAZOLE 40 MG VIAL IV SCH (09:29)
[2017-11-16] MEDS: CLOPIDOGREL BISULFATE 75 MG TABLET GT SCH (09:29)
[2017-11-16] MEDS: ASPIRIN 81 MG TAB.CHEW GT SCH (09:29)
[2017-11-16] MEDS: ASCORBIC ACID 500 MG TABLET GT SCH ×2 (09:29→17:51)
[2017-11-16] MEDS: CALCIUM ACETATE 667 MG TABLET GT SCH ×3 (09:29→17:51)
[2017-11-16] MEDS: LACTOBACILLUS RHAMNOSUS GG 1 EACH CAP.SPRINK PO SCH ×2 (09:30→17:51)
[2017-11-16] MEDS: MULTIVIT, IRON, MIN NO. 8, FA 1 TAB GT SCH (09:30)
[2017-11-16] MEDS: AMIODARONE HCL 200 MG TABLET GT SCH ×2 (09:30→17:51)
[2017-11-16] MEDS: ZINC SULFATE 220 MG CAPSULE GT SCH (09:30)
[2017-11-16 09:36] LABS: ABG BASE EXCESS 3.7 mmol/L; ABG OXYGEN SATURATION 97.7 % (92.0-98.5); ABG PCO2 36.8 mmHg (35.0-45.0); ABG PH 7.487 (7.350-7.450); ABG PO2 125.1 mmHg (75.0-100.0); AaDO2 117.8 mmHg; COHb 0.3 % (0.5-1.5); MetHb 0.8 % (0.0-1.5); O2Hb 96.6 % (94.0-97.0); PEEP,BG 0 cm H2O; SITE, ABG Right Radial; VT, ABG 550 mL
--- NOTE | 2017-11-16 10:42 | NUR ---
PATIENT WAS RECEIVED ON CONTINUOUS VENT SUPPORT ON NOTED VENT SETTINGS. SUCTIONED WITH A MODERATE AMOUNT OF THIN PALE YELLOWISH SECRETIONS . VENT PLUGGED INTO RED OUTLET.AMBUBAG AND SPARE TRACH AT BEDSIDE. PATIENT STABLE AT THIS TIME, WILL CONTINUE TO MONITOR. Addendum: 11/16/17 at 1043 by LUDMILA THRASHER RT Amended: Links added.
[2017-11-16 12:00] VITALS: BP 122/65
[2017-11-16 16:00] VITALS: BP 120/60
[2017-11-16] MEDS ORDERED: PANTOPRAZOLE 40 MG VIAL IV SCH (17:00)
[2017-11-16 17:42] LABS: IRON, SERUM 24 ug/dl (50-175); TOTAL IRON BINDING CAPACITY 109 ug/dl (250-450)
[2017-11-16 18:17] LABS: FERRITIN 2555 ng/mL (8-388)
--- NOTE | 2017-11-16 18:40 | NUR ---
RN ADRIANA ENDING NOTES PATIENT RESTING IN BED, NO ACUTE CHANGES NOTED, ALL DUE MEDS GIVEN, ALL WOUND TX DONE MD ORDERED, FLEXI SEAL INTACT, IV SITE INTACT, NO SOB OR ACUTE CHANGES NOTED WILL ENDORSE TO PM NURSE.
[2017-11-16 20:00] VITALS: BP_SYST 124; BP_SYST 141; BP_DIAS 54; BP_DIAS 81
[2017-11-16] MEDS ORDERED: MEROPENEM 500 MG in IV NS 0.9% 50 ML IV SCH (20:00)
[2017-11-16] MEDS ORDERED: MEROPENEM 500 MG VIAL IV ONE (20:13)
--- NOTE | 2017-11-16 21:00 | NUR ---
RN NOTES REPORT GIVEN TO ROHITH DAVIES FOR THE PATIENT'S CONTINUATION OF CARE
--- NOTE | 2017-11-16 22:00 | NUR ---
RN INITIAL NOTES RECEIVED THE PATIENT OBTUNDED ON BED, OPENS EYES TO PAIN STIMULI ONLY. ON VENT WITH SETTINGS AC 14, TV 550, FIO2 40%, PEEP 0, SHILEY 8, SATURATING WELL, NO S/S OF RESP DISTRESS. PT IS ST ON THE MONITOR, HR 100'S. FLEXISEAL IS INTACT WITH BROWN LIQUID STOOL NOTED. RIGHT UPPER AV FISTULA NOTED. PT IS ANURIC, ON DIAPERS. GT TO NEPRO @ 45MLS/HR, NO RESIDUALS. RIGHT SUBCLAVIAN TLC FLUSHED AND PATENT, NO S/S OF INFILTRATION/INFECTION, DRESSING CDI. BED LOW AND LOCKED, SIDERAILS UP, BED ALARM ON. WILL MONITOR CLOSELY.
[2017-11-16] MEDS: ATORVASTATIN 10 MG TABLET GT SCH (23:12)
[2017-11-16] MEDS: INSULIN GLARGINE, 100 UNIT/ML CARTRIDGE SQ SCH (23:21)
[2017-11-17] VITALS (8 sets, daily range): BP systolic 93–166; BP diastolic 60–80
[2017-11-17] MEDS: SEVELAMER CARBONATE 0.8 GM POWD.PACK PO SCH ×3 (05:47→21:14)
[2017-11-17] MEDS: VANCOMYCIN HCL 125 MG/2.5 ML ORAL.SUSP GT SCH ×4 (05:48→23:45)
[2017-11-17] MEDS: BLOOD SUGAR DIAGNOSTIC 1 EACH STRIP IN SCH ×4 (05:59→23:25)
[2017-11-17] MEDS: NEPRO 1,000 ML BOTTLE GT PRN (06:07)
[2017-11-17] MEDS: INSULIN REGULAR, HUMAN 100 UNIT/ML 3 ML VIAL SQ PRN ×3 (06:10→17:08)
[2017-11-17 06:39] LABS: BASOPHILS # (AUTO) 0.1 /CMM (0.0-0.2); BASOPHILS % (AUTO) 0.3 % (0.0-2.0); EOSINOPHILS % (AUTO) 1.2 % (0.0-6.0); HEMATOCRIT 21 % (39-51); MEAN CORPUSCULAR HEMOGLOBIN 30 PG (26.0-33.0); MEAN CORPUSCULAR HGB CONC 31 g/dl (31.0-36.0); MEAN CORPUSCULAR VOLUME 95 fL (80-96); MONOCYTES # (AUTO) 0.4 /CMM (0.1-1.30); MONOCYTES % (AUTO) 2.3 % (2.0-12.0); NEUTROPHILS # (AUTO) 14.5 /CMM (1.8-8.9); NEUTROPHILS % (AUTO) 90.2 % (43.0-81.0); PLATELET COUNT (AUTO) 169 /CMM (150-450); RDW COEFFICIENT OF VARIATION 20.9 (11.5-15.0); RED BLOOD CELL COUNT(AUTO) 2.23 MIL/uL (4.5-6.0); WHITE BLOOD COUNT (AUTO) 16.1 K/uL (4.3-11.0)
[2017-11-17 06:59] LABS: CARBON DIOXIDE 26 mmol/L (21-32); CHLORIDE 98 mmol/L (98-107); CREATININE 3.4 mg/dL (0.6-1.3); GLUCOSE 236 mg/dL (74-106); MAGNESIUM 2.4 mg/dL (1.8-2.4); PHOSPHORUS 3.5 mg/dL (2.5-4.9); POTASSIUM 4.5 mmol/L (3.5-5.1); SODIUM SERUM 134 mmol/L (136-145); UREA NITROGEN, BLOOD 68 mg/dL (7-18)
--- NOTE | 2017-11-17 07:00 | NUR ---
RN NOTES RECEIVED PT ON BED, VENT/TRACH DEPENDENT, TRACH CARE DONE, OBTUNDED, OPENS EYES TO PAIN STIMULI ONLY. TOLERATING CURRENT VENT SETTING WELL, TRACH CARE DONE, ON TELE ST WITH BBB, HR IN 100'S , FLEXISEAL IS INTACT WITH BROWN LIQUID STOOL NOTED. NEPRO @ 45MLS/HR RUNNING VIA GT , NO RESIDUAL NOTED, RIGHT SUBCLAVIAN TLC FLUSHED AND PATENT, SITE CLEAN ,DRY AND INTACT, BED IN LOWEST AND LOCKED POSITION, SR UP x3, CALL LIGHT WITHIN EASY REACH, BED ALARM ON. WILL CONTINUE TO MONITOR.
[2017-11-17 07:31] LABS: HEMOGLOBIN 6.6 g/dL (13.5-17.5)
--- NOTE | 2017-11-17 07:40 | NUR ---
RN ADRIANA ENDING NOTES PATIENT RESTING IN BED, NO ACUTE CHANGES NOTED, ALL DUE MEDS GIVEN, ALL WOUND TX DONE MD ORDERED,PIC TAKEN. FLEXI SEAL INTACT, IV SITE INTACT, NO SOB OR ACUTE CHANGES NOTED. ORDERS TO REQUEST MEDICAL RECORDS ENDORSED TO AM SHIFT.
[2017-11-17 07:44] LABS: BAND % (MANUAL) 2 % (0.0-5.0); EOSINOPHILS % (MANUAL) 6 % (0-4); LYMPHOCYTES % (MANUAL) 10 % (16-48); NEUTROPHILS % (MANUAL) 82 (42-76)
[2017-11-17] MEDS: VITAMIN B COMP W-C 1 TAB TABLET GT SCH (08:57)
[2017-11-17] MEDS: ZINC SULFATE 220 MG CAPSULE GT SCH (08:58)
[2017-11-17] MEDS: LACTOBACILLUS RHAMNOSUS GG 1 EACH CAP.SPRINK PO SCH ×2 (08:58→16:56)
[2017-11-17] MEDS: PANTOPRAZOLE 40 MG VIAL IV SCH (08:58)
[2017-11-17] MEDS: ASPIRIN 81 MG TAB.CHEW GT SCH (08:58)
[2017-11-17] MEDS: MULTIVIT, IRON, MIN NO. 8, FA 1 TAB GT SCH (08:58)
[2017-11-17] MEDS: CLOPIDOGREL BISULFATE 75 MG TABLET GT SCH (08:58)
[2017-11-17] MEDS: CALCIUM ACETATE 667 MG TABLET GT SCH ×3 (08:58→16:55)
[2017-11-17] MEDS: ASCORBIC ACID 500 MG TABLET GT SCH ×2 (08:58→16:55)
[2017-11-17] MEDS: MEROPENEM 500 MG in IV NS 0.9% 50 ML IV SCH ×2 (09:02→21:14)
[2017-11-17] MEDS: DAKINS QUARTER STRENGTH (0.125%) 480 ML BOTTLE TOP SCH (09:03)
--- NOTE | 2017-11-17 09:30 | NUR ---
RN NOTES ANGELA CLIENT DEVELOPMENT MANAGER NOTIFED REGARDING H/H 6.09/04 NEW ORDER RECEIVED
[2017-11-17] MEDS: AMIODARONE HCL 200 MG TABLET GT SCH ×2 (10:22→16:56)
--- NOTE | 2017-11-17 18:11 | NUR ---
RN NOTES ONE UNIT OF PRBC STARTED TO INFUSE ALONG WITH HD AT THIS TIME , CONTINUE TO MONITOR.
--- NOTE | 2017-11-17 18:55 | NUR ---
RN NOTES ONE PRBC INFUSED ,NO COMPLICATION NOTED, PT RECEIVING HD AT THIS TIME, TOLERATING TF WELL, SR UP x3, CALL LIGHT WITHIN EASY REACH, SR UP X3, WILL ENDOSE TO EMERGENCY COMMUNICATIONS DISPATCHER NURSE FOR CONTINUITY OF CARE.
--- NOTE | 2017-11-17 19:22 | NUR ---
PT RCKNUTSON'D ON MECHANICAL VENT WITH CHARTED SETTINGS. SX DONE. AMBU BAG AT BEDSIDE. VENT PLUGGED INTO RED OUTLET. PT TRACH PATENT AND SECURE. ALARMS ARE ON AND AUDIBLE. WILL CONTINUE TO MONITOR. Addendum: 11/17/17 at 1923 by PAO TONEY RT Amended: Links added.
--- NOTE | 2017-11-17 20:00 | NUR ---
ADRIANA RN NOTES RECEIVED THE PATIENT IN BED OBTUNDED, OPENS EYES TO PAIN STIMULI ONLY. ON TRACH/VENT TOLERATING SETTING WELL. 100 % SATURATION AT THIS TIME. NO DISTRESS OR DISCOMFORT NOTED. NO S/S OF PAIN NOTED. ON TELE ST WITH BBB HR 102. HD FINISHED 0 ML OUTPUT. FLEXI SEAL IS INTACT AND PATENT WITH BROWN LIQUID STOOL NOTED. RIGHT UPPER ARM WITH AV FISTULA WITH DRESSING I/C/D POST HD. PT IS ANURIC, ON DIAPERS. GTF NEPRO @ 45MLS/HR INFUSING VERY WELL, NO RESIDUALS NOTED. RIGHT SUBCLAVIAN TLC FLUSHED AND PATENT, NO S/S OF INFILTRATION NOTED. ALL DRESSING C/D/I. REPOSITION HIM FOR SKIN MANAGEMENT. BED IN LOW AND LOCKED POSITION, SIDE RAILS UP X 3 AND BED ALARM ON. VSS. CONTINUE TO MONITOR HIM.
[2017-11-17] MEDS: ATORVASTATIN 10 MG TABLET GT SCH (21:14)
[2017-11-17] MEDS: INSULIN GLARGINE, 100 UNIT/ML CARTRIDGE SQ SCH (21:36)
[2017-11-17 21:53] LABS: BASOPHILS % (AUTO) 0.2 % (0.0-2.0); EOSINOPHILS % (AUTO) 2.5 % (0.0-6.0); HEMATOCRIT 27 % (39-51); HEMOGLOBIN 8.9 g/dL (13.5-17.5); LYMPHOCYTES % (AUTO) 7.6 % (20.0-44.0); MEAN CORPUSCULAR HEMOGLOBIN 30 PG (26.0-33.0); MEAN CORPUSCULAR HGB CONC 33 g/dl (31.0-36.0); MEAN CORPUSCULAR VOLUME 91 fL (80-96); MONOCYTES # (AUTO) 0.4 /CMM (0.1-1.30); MONOCYTES % (AUTO) 2.7 % (2.0-12.0); NEUTROPHILS # (AUTO) 11.8 /CMM (1.8-8.9); PLATELET COUNT (AUTO) 196 /CMM (150-450); RDW COEFFICIENT OF VARIATION 18.9 (11.5-15.0); RED BLOOD CELL COUNT(AUTO) 2.96 MIL/uL (4.5-6.0); WHITE BLOOD COUNT (AUTO) 13.5 K/uL (4.3-11.0)
[2017-11-18] VITALS (8 sets, daily range): BP systolic 68–144; BP diastolic 45–87
--- NOTE | 2017-11-18 05:23 | NUR ---
BLOODY SECRETIONS NOTED. ROHITH OQUENDO AWARE. Addendum: 11/18/17 at 0524 by PAO TONEY RT Amended: Links added.
[2017-11-18] MEDS: SEVELAMER CARBONATE 0.8 GM POWD.PACK PO SCH ×3 (05:32→21:01)
[2017-11-18] MEDS: VANCOMYCIN HCL 125 MG/2.5 ML ORAL.SUSP GT SCH ×4 (05:32→23:05)
[2017-11-18] MEDS: BLOOD SUGAR DIAGNOSTIC 1 EACH STRIP IN SCH ×4 (05:47→23:07)
--- NOTE | 2017-11-18 06:25 | NUR ---
ADRIANA RN NOTE PT IN BED OBTUNDED. NO DISTRESS OR DISCOMFORT NOTED. PT IS NPO. NO S/S OF PAIN NOTED. REPOSITION HIM Q2H, KEPT HIM DRY AND CLEAN. ALL NEEDS ATTENDED. SIDE RAILS UP X 2 AND CALL LIGHT WITHIN REACH. WILL ENDORSE TO DAY SHIFT NURSE FOR CONTINUE TO CARE.
[2017-11-18 06:45] LABS: BASOPHILS % (AUTO) 0.1 % (0.0-2.0); EOSINOPHILS % (AUTO) 1.2 % (0.0-6.0); HEMATOCRIT 25 % (39-51); HEMOGLOBIN 7.7 g/dL (13.5-17.5); LYMPHOCYTES # (AUTO) 0.9 /CMM (0.8-4.8); LYMPHOCYTES % (AUTO) 5.5 % (20.0-44.0); MEAN CORPUSCULAR HEMOGLOBIN 30 PG (26.0-33.0); MEAN CORPUSCULAR HGB CONC 32 g/dl (31.0-36.0); MEAN CORPUSCULAR VOLUME 94 fL (80-96); MONOCYTES # (AUTO) 0.4 /CMM (0.1-1.30); MONOCYTES % (AUTO) 2.4 % (2.0-12.0); NEUTROPHILS # (AUTO) 14.7 /CMM (1.8-8.9); NEUTROPHILS % (AUTO) 90.8 % (43.0-81.0); PLATELET COUNT (AUTO) 232 /CMM (150-450); RDW COEFFICIENT OF VARIATION 20.5 (11.5-15.0); RED BLOOD CELL COUNT(AUTO) 2.61 MIL/uL (4.5-6.0); WHITE BLOOD COUNT (AUTO) 16.1 K/uL (4.3-11.0)
[2017-11-18 06:47] LABS: INR 1.01 (0.87-1.13)
--- NOTE | 2017-11-18 07:00 | NUR ---
RN NOTES RECEIVED PT ON BED, OBTUNDED, OPENS EYES TO PAIN STIMULI ONLY. ON TRACH/VENT TOLERATING CURRENT VENT SETTING WELL. 100 % SATURATION AT THIS TIME. NO DISTRESS OR DISCOMFORT NOTED. NO S/S OF PAIN NOTED. ON TELE ST WITH BBB HR IN 90'S . FLEXI SEAL IS INTACT AND PATENT WITH BROWN LIQUID STOOL NOTED. RIGHT UPPER ARM WITH AV FISTULA WITH DRESSING I/C/D POST HD. PT IS ANURIC, ON DIAPERS. GTF ON HOLD AT THIS TIME FOR EGD, RIGHT SUBCLAVIAN TLC FLUSHED AND PATENT, NO S/S OF INFILTRATION NOTED. ALL DRESSING C/D/I. BED IN LOW AND LOCKED POSITION, SIDE RAILS UP X 3 AND BED ALARM ON. CONTINUE TO MONITOR HARRISON .
[2017-11-18 07:11] LABS: CALCIUM, SERUM 7.5 mg/dL (8.5-10.1); CARBON DIOXIDE 27 mmol/L (21-32); CHLORIDE 99 mmol/L (98-107); CREATININE 2.9 mg/dL (0.6-1.3); GLUCOSE 174 mg/dL (74-106); MAGNESIUM 2.6 mg/dL (1.8-2.4); PHOSPHORUS 4.5 mg/dL (2.5-4.9); POTASSIUM 4.4 mmol/L (3.5-5.1); SODIUM SERUM 139 mmol/L (136-145); UREA NITROGEN, BLOOD 62 mg/dL (7-18)
--- NOTE | 2017-11-18 07:48 | NUR ---
RECEIVED PT TRACH ON MECHANICAL VENTILATOR NOTED. PT ASLEEP AT THIS TIME BUT RESPONDS TO STIMULI WHEN SUCTIONED. ORAL AND TRACH SUCTIONED, TRACH SX LARGE AMOUNT OF , THIN BLODDY, YELLOW RED SPECK SECRETIONS. BILATERAL CLEAR DIMINISHED BREATH SOUNDS HEARD UPON AUSCULTATION. AMBU BAG AT BEDSIDE. VENT ALARM AUDIBLE AND FUNCTIONING. PULSE OXIMETER ATTACHED TO PATIENT. VENT PLUGGED IN RED OUTLET. WILL CONTINUE TO MONITOR PT. Addendum: 11/18/17 at 0753 by CAM YOUNG RT Amended: Links added.
[2017-11-18] MEDS: MEROPENEM 500 MG in IV NS 0.9% 50 ML IV SCH ×2 (08:53→21:00)
[2017-11-18] MEDS: CALCIUM ACETATE 667 MG TABLET GT SCH ×3 (09:00→17:20)
[2017-11-18] MEDS: LACTOBACILLUS RHAMNOSUS GG 1 EACH CAP.SPRINK PO SCH ×2 (09:00→13:45)
[2017-11-18] MEDS: ASCORBIC ACID 500 MG TABLET GT SCH ×2 (09:00→13:45)
[2017-11-18] MEDS ORDERED: MIDODRINE HCL (5MG) 5 MG TABLET GT STA (09:14)
--- NOTE | 2017-11-18 09:26 | NUR ---
RN NOTES BP =89/58 ON L ARM , PJ BARRETO NOTITED, 500CC NS IV BOLUS AND MIDODRINE 10MG x1 GIVEN , CONTINUE TO MONITOR.
[2017-11-18] MEDS: PANTOPRAZOLE 40 MG VIAL IV SCH (09:27)
[2017-11-18] MEDS ORDERED: IV NS 0.9% 500 ML IV ONE (09:30)
--- NOTE | 2017-11-18 10:48 | NUR ---
RN NOTES DQ=175/70 ON L THIGH AT THIS TIME .
[2017-11-18] MEDS: DAKINS QUARTER STRENGTH (0.125%) 480 ML BOTTLE TOP SCH (10:52)
[2017-11-18] MEDS: INSULIN REGULAR, HUMAN 100 UNIT/ML 3 ML VIAL SQ PRN ×3 (11:53→23:05)
[2017-11-18] MEDS: AMIODARONE HCL 200 MG TABLET GT SCH ×2 (13:44→17:20)
[2017-11-18] MEDS: NEPRO 1,000 ML BOTTLE GT PRN (13:44)
[2017-11-18] MEDS: CLOPIDOGREL BISULFATE 75 MG TABLET GT SCH (13:45)
[2017-11-18] MEDS: VITAMIN B COMP W-C 1 TAB TABLET GT SCH (13:45)
[2017-11-18] MEDS: MULTIVIT, IRON, MIN NO. 8, FA 1 TAB GT SCH (13:45)
[2017-11-18] MEDS: ASPIRIN 81 MG TAB.CHEW GT SCH (13:47)
[2017-11-18] MEDS: ZINC SULFATE 220 MG CAPSULE GT SCH (13:47)
--- NOTE | 2017-11-18 18:39 | NUR ---
RN NOTES VSS STABLE , TOLERATING TF WELL, SR UP x3, WILL ENDORSE TO GASKET INSPECTOR NURSE FOR CONTINUITY OF CARE .
--- NOTE | 2017-11-18 19:26 | NUR ---
TD RN NOTES RECEIVED PT ON BED. OBTUNDED. ON [facility] VENT SETTING SATURATING WELL. NO RESPIRATORY DISTRESS NOTED. ON TELE MONITOR ST C BBB HR 101. IV ACCESS ON RIGHT SUBCLAVIAN CATH TKO PATENT AND INTACT. IV ACCESS ON KULDEEP AV SHUNT NO SIGN OF BLEEDING OR INFECTION. HEAD OF BED ELEVATED. SIDE RAILS UP. CALL LIGHT WITHIN REACH. BED ALARM ON, WILL CONTINUE TO MONITOR PT CLOSELY.
--- NOTE | 2017-11-18 19:46 | NUR ---
PT REC'D TRACH ON MECH VENT ON AC MODE. NO RESP DISTRESS NOTED. TRACH PATENT AND SECURED. SX'D FOR THICK MOD AMT OF BLOODY SECRETIONS. PT STABLE AT THIS TIME. ALARMS ARE SET AND AUDIBLE. VENT PLUGGED INTO RED OUTLET. AMBU BAG BEDSIDE. WILL CONTINUE TO MONITOR. Addendum: 11/19/17 at 0508 by GAYLE HAYNES RT Amended: Links added.
[2017-11-18] MEDS: ATORVASTATIN 10 MG TABLET GT SCH (21:01)
[2017-11-18] MEDS: INSULIN GLARGINE, 100 UNIT/ML CARTRIDGE SQ SCH (21:05)
[2017-11-19] VITALS: BP 115/77
--- NOTE | 2017-11-19 02:22 | NUR ---
TD RN NOTES WOUND CARE AND BED BATH DONE. NO RESPIRATORY DISTRESS NOTED.
[2017-11-19 04:00] VITALS: BP 114/64
[2017-11-19] MEDS: SEVELAMER CARBONATE 0.8 GM POWD.PACK PO SCH ×3 (05:38→21:09)
[2017-11-19] MEDS: VANCOMYCIN HCL 125 MG/2.5 ML ORAL.SUSP GT SCH ×4 (05:38→23:03)
[2017-11-19] MEDS: INSULIN REGULAR, HUMAN 100 UNIT/ML 3 ML VIAL SQ PRN ×4 (05:40→23:02)
[2017-11-19] MEDS: BLOOD SUGAR DIAGNOSTIC 1 EACH STRIP IN SCH ×4 (05:40→23:03)
[2017-11-19 06:44] LABS: BASOPHILS # (AUTO) 0.1 /CMM (0.0-0.2); BASOPHILS % (AUTO) 0.8 % (0.0-2.0); EOSINOPHILS % (AUTO) 1.2 % (0.0-6.0); HEMATOCRIT 25 % (39-51); HEMOGLOBIN 7.7 g/dL (13.5-17.5); LYMPHOCYTES # (AUTO) 1.1 /CMM (0.8-4.8); LYMPHOCYTES % (AUTO) 7.2 % (20.0-44.0); MEAN CORPUSCULAR HEMOGLOBIN 30 PG (26.0-33.0); MEAN CORPUSCULAR HGB CONC 32 g/dl (31.0-36.0); MEAN CORPUSCULAR VOLUME 95 fL (80-96); MONOCYTES # (AUTO) 0.6 /CMM (0.1-1.30); NEUTROPHILS # (AUTO) 13.7 /CMM (1.8-8.9); NEUTROPHILS % (AUTO) 86.8 % (43.0-81.0); PLATELET COUNT (AUTO) 297 /CMM (150-450); RDW COEFFICIENT OF VARIATION 19.5 (11.5-15.0); RED BLOOD CELL COUNT(AUTO) 2.59 MIL/uL (4.5-6.0); WHITE BLOOD COUNT (AUTO) 15.8 K/uL (4.3-11.0)
[2017-11-19 06:56] LABS: CALCIUM, SERUM 8.2 mg/dL (8.5-10.1); CARBON DIOXIDE 23 mmol/L (21-32); CHLORIDE 98 mmol/L (98-107); CREATININE 3.2 mg/dL (0.6-1.3); GLUCOSE 244 mg/dL (74-106); MAGNESIUM 2.7 mg/dL (1.8-2.4); PHOSPHORUS 4.3 mg/dL (2.5-4.9); POTASSIUM 4.8 mmol/L (3.5-5.1); SODIUM SERUM 136 mmol/L (136-145); UREA NITROGEN, BLOOD 74 mg/dL (7-18)
--- NOTE | 2017-11-19 07:15 | NUR ---
RN ADRIANA INITIAL NOTES RECEIVED REPORT AND PATIENT FROM PM NURSE, PATEINT RESTING IN BED WITH NO ACUTE DISTRESS NOTED. NONVERBAL OBTUNDED, ON VENT TRACH SETTINGS ORDERED BY MD SAT ABOVE 97% NO SOB OR ACUTE DISTRESS NOTED, ON TELE MON SR ST 101, GTUBE FEEDING NEPRO @45 ML/HR NO RESIDUAL NOTED, RT SUBCLAVIAN CATH INTACT ,RIGHT UPPER AV SHUNT INTACT, ALL NEEDS MET, ALL SAFETY MEASURES INITIATED, [employer] MATRESS ON, WILL CONTINUE TO MONITOR.
--- NOTE | 2017-11-19 07:34 | NUR ---
PT RECEIVED ON MECHANICAL VENT AC MODE. NO RESP DISTRESS NOTED. TRACH PATENT AND SECURED. SUCTIONED THICK MODERATE AMOUNT BLOODY SECRETIONS. PT STABLE AT THIS TIME. ALARMS ARE SET AND AUDIBLE. VENT PLUGGED INTO RED OUTLET. AMBU BAG IS AT BEDSIDE. WILL CONTINUE TO MONITOR. Addendum: 11/19/17 at 0735 by CRISTY MISHRA RT Amended: Links added.
--- NOTE | 2017-11-19 07:35 | NUR ---
TD RN NOTES NO ACUTE CHANGES NOTED DURING THE SHIFT. PROVIDED COMFORT AND SAFETY. DUE MEDS GIVEN. WOUND CARE DONE. ENDORSE TO THE AM NURSE FOR CONTINUITY OF CARE.
[2017-11-19 08:00] VITALS: BP 133/65
[2017-11-19] MEDS: PANTOPRAZOLE 40 MG VIAL IV SCH (10:29)
[2017-11-19] MEDS: AMIODARONE HCL 200 MG TABLET GT SCH ×2 (10:29→17:22)
[2017-11-19] MEDS: CLOPIDOGREL BISULFATE 75 MG TABLET GT SCH (10:29)
[2017-11-19] MEDS: LACTOBACILLUS RHAMNOSUS GG 1 EACH CAP.SPRINK PO SCH ×2 (10:29→17:21)
[2017-11-19] MEDS: ASCORBIC ACID 500 MG TABLET GT SCH ×2 (10:29→17:21)
[2017-11-19] MEDS: ASPIRIN 81 MG TAB.CHEW GT SCH (10:29)
[2017-11-19] MEDS: MULTIVIT, IRON, MIN NO. 8, FA 1 TAB GT SCH (10:29)
[2017-11-19] MEDS: CALCIUM ACETATE 667 MG TABLET GT SCH ×3 (10:29→17:22)
[2017-11-19] MEDS: ZINC SULFATE 220 MG CAPSULE GT SCH (10:29)
[2017-11-19] MEDS: MEROPENEM 500 MG in IV NS 0.9% 50 ML IV SCH ×2 (10:32→21:10)
[2017-11-19] MEDS: DAKINS QUARTER STRENGTH (0.125%) 480 ML BOTTLE TOP SCH (10:33)
[2017-11-19] MEDS: VITAMIN B COMP W-C 1 TAB TABLET GT SCH (10:33)
[2017-11-19 12:00] VITALS: BP 120/64
[2017-11-19 16:00] VITALS: BP 123/77
[2017-11-19] MEDS: NEPRO 1,000 ML BOTTLE GT PRN (17:30)
--- NOTE | 2017-11-19 18:19 | NUR ---
RN ADRIANA ENDING NOTES PATIENT RESTING IN BED WITH NO ACUTE DISTRESS, ALL DUE MEDS GIVEN, ALL NEEDS MET, WOUND TX DONE MD ORDERED, GTUBE FEEDING RUNNING NO RESIDUAL NOTED, HD ORDERED FOR TODAY NOT YET DONE SPOKE WITH NEELAM HD NURSE AND STATED WILL DO TONIGHT, BED BATH PROVIDED, WILL COTINUE CARE AND ENDORSE TO PM NURSE.
--- NOTE | 2017-11-19 19:44 | NUR ---
RT NOTE: RECEIVED TRACH PT ON NOTED VENT SETTINGS. TRACH IS PATENT & SECURE. FIELD CROP I FARMWORKER DONE. VENT IS PLUGGED INTO RED OUTLET. ALARMS ARE ON AND AUDIBLE. AMBU BAG IS AT BEDSIDE. SX SMALL AMOUNT OF RED TINGED SECRETIONS. NO RESP DISTRESS NOTED. WILL CONT TO MONITOR PT. Addendum: 11/20/17 at 0307 by RAUL CORONADO RT Amended: Links added.
[2017-11-19 20:00] VITALS: BP 92/58
[2017-11-19] MEDS: ATORVASTATIN 10 MG TABLET GT SCH (21:10)
[2017-11-19] MEDS: INSULIN GLARGINE, 100 UNIT/ML CARTRIDGE SQ SCH (23:02)
[2017-11-20] VITALS: BP 106/67
[2017-11-20 04:00] VITALS: BP 101/65
[2017-11-20] MEDS: SEVELAMER CARBONATE 0.8 GM POWD.PACK PO SCH ×3 (05:12→21:00)
[2017-11-20] MEDS: VANCOMYCIN HCL 125 MG/2.5 ML ORAL.SUSP GT SCH ×3 (05:12→17:15)
[2017-11-20] MEDS: BLOOD SUGAR DIAGNOSTIC 1 EACH STRIP IN SCH ×3 (05:13→17:37)
[2017-11-20] MEDS: INSULIN REGULAR, HUMAN 100 UNIT/ML 3 ML VIAL SQ PRN ×3 (05:28→17:47)
[2017-11-20] MEDS: NEPRO 1,000 ML BOTTLE GT PRN (05:34)
--- NOTE | 2017-11-20 07:39 | NUR ---
ADRIANA RN NOTE PT REMAINED STABLE DURING SHIFT. NO ACUTE DISTRESS NOTED. VENT SETTINGS WELL TOLERATED AND SATURATING WELL. SUCTIONED NEEDED. REPOSITIONED Q2H. HOB ELEVATED AND ON ASPIRATION PRECAUTIONS. GTUBE FEEDING WELL TOLERATED AND NO RESIDUALS NOTED. ISOLATION PRECAUTIONS OBSERVED. WOUND TREATMENT PERFORMED ORDERED AND WELL TOLERATED. ALL NEEDS ATTENDED TO PROMPTLY. WILL ENDORSE TO NEXT SHIFT FOR CONTINUITY OF CARE.
--- NOTE | 2017-11-20 07:50 | NUR ---
RN NOTE RECEIVED PATIENT IN BED, OBTUNDED, OPENS EYES TO TACTILE STIMULI. TRACH/VENT DEPENDENT TOLERATING SETTING WELL AND SATURATING WELL. NO DISTRESS OR DISCOMFORT NOTED. NO S/S OF PAIN NOTED. ON CARDIAC MONITORING SINUS RHYTHM HR OF 87. FLEXI SEAL IS INTACT AND PATENT WITH BROWN LIQUID STOOL NOTED. RIGHT UPPER ARM WITH AV FISTULA WITH DRESSING CLEAN, DRY, AND INTACT. GT SITE INTACT AND PATENT WITH ONGOING FEEDINGS, WELL TOLERATED AND NO RESIDUALS. RIGHT SUBCLAVIAN TRIPLE LUMEN CATH FLUSHED AND PATENT, NO S/S OF INFILTRATION NOTED. ALL SAFETY MEASURES DONE. BED LOW AND LOCKED POSITION, WILL CONTINUE TO MONITOR.
[2017-11-20 08:00] VITALS: BP 97/62
[2017-11-20] MEDS: ASPIRIN 81 MG TAB.CHEW GT SCH (08:15)
[2017-11-20] MEDS: ASCORBIC ACID 500 MG TABLET GT SCH ×2 (08:16→16:22)
[2017-11-20] MEDS: VITAMIN B COMP W-C 1 TAB TABLET GT SCH (08:16)
[2017-11-20] MEDS: CALCIUM ACETATE 667 MG TABLET GT SCH ×3 (08:16→16:22)
[2017-11-20] MEDS: CLOPIDOGREL BISULFATE 75 MG TABLET GT SCH (08:16)
[2017-11-20] MEDS: ZINC SULFATE 220 MG CAPSULE GT SCH (08:16)
[2017-11-20] MEDS: MULTIVIT, IRON, MIN NO. 8, FA 1 TAB GT SCH (08:16)
[2017-11-20] MEDS: LACTOBACILLUS RHAMNOSUS GG 1 EACH CAP.SPRINK PO SCH (08:16)
[2017-11-20] MEDS: PANTOPRAZOLE 40 MG VIAL IV SCH (08:16)
[2017-11-20] MEDS: MEROPENEM 500 MG in IV NS 0.9% 50 ML IV SCH ×2 (08:20→22:34)
[2017-11-20] MEDS: DAKINS QUARTER STRENGTH (0.125%) 480 ML BOTTLE TOP SCH (08:21)
[2017-11-20] MEDS: AMIODARONE HCL 200 MG TABLET GT SCH ×2 (09:25→16:22)
--- NOTE | 2017-11-20 09:39 | NUR ---
RT RECD PT TRACHED INTACT AND SECURED ON MECH VENT MONIQUE ORDERED SETTINGS, ALARMS ON AND AUDIBLE VENT PLUGGED IN RED OUTLET BAG AND MASK AT [facility]. SX SMALL YELLOW-PINK BLOODY SECRETIONS NO RESP DISTRESS ATT WILL CONTINUE TO MONITOR
[2017-11-20 12:00] VITALS: BP 101/58
[2017-11-20 16:00] VITALS: BP 99/67
--- NOTE | 2017-11-20 19:10 | NUR ---
RN NOTE PATIENT REMAINED STABLE THROUGHOUT SHIFT. NO ACUTE CHANGES OR DISTRESS NOTED. WILL ENDORSE TO NEXT SHIFT TO CONTINUE TO MONITOR CONTINUITY OF CARE.
--- NOTE | 2017-11-20 19:26 | NUR ---
RT NOTE: RECEIVED TRACH PT ON NOTED VENT SETTINGS. TRACH IS PATENT & SECURE. REGISTRATION OFFICER DONE. VENT IS PLUGGED INTO RED OUTLET. ALARMS ARE ON AND AUDIBLE. AMBU BAG IS AT BEDSIDE. SX MODERATE AMOUNT OF THIN RED TINGED SECRETIONS. NO RESP DISTRESS NOTED. WILL CONT TO MONITOR PT. Addendum: 11/21/17 at 0255 by RAUL CORONADO RT Amended: Links added.
--- NOTE | 2017-11-20 19:35 | NUR ---
RN TEL INITIAL NOTES RECEIVED REPORT AND PATIENT FROM AM NURSE, PATEINT RESTING IN BED WITH NO ACUTE DISTRESS NOTED. NONVERBAL OBTUNDED, ON VENT TRACH SETTINGS ORDERED BY MD SAT ABOVE 98% NO SOB OR ACUTE DISTRESS NOTED, ON TELE MON SR ST , GTUBE FEEDING NEPRO @50 ML/HR NO RESIDUAL NOTED, RT SUBCLAVIAN CATH INTACT ,RIGHT UPPER AV SHUNT INTACT, ALL NEEDS MET, ALL SAFETY MEASURES INITIATED, KCI MATRESS ON, WILL CONTINUE TO MONITOR.
[2017-11-20 20:00] VITALS: BP 115/74
--- NOTE | 2017-11-20 21:00 | NUR ---
XIMENA NOT GIVEN MED NOT AVAILABLE
[2017-11-20] MEDS: ATORVASTATIN 10 MG TABLET GT SCH (22:35)
[2017-11-20] MEDS: INSULIN GLARGINE, 100 UNIT/ML CARTRIDGE SQ SCH (22:53)
[2017-11-21] VITALS: BP 138/71
[2017-11-21] MEDS: BLOOD SUGAR DIAGNOSTIC 1 EACH STRIP IN SCH ×5 (00:33→23:24)
[2017-11-21] MEDS: VANCOMYCIN HCL 125 MG/2.5 ML ORAL.SUSP GT SCH ×5 (00:33→23:27)
[2017-11-21] MEDS: NEPRO 1,000 ML BOTTLE GT PRN (02:01)
[2017-11-21 04:00] VITALS: BP 134/73
[2017-11-21] MEDS: SEVELAMER CARBONATE 0.8 GM POWD.PACK PO SCH ×3 (05:00→20:25)
--- NOTE | 2017-11-21 05:23 | NUR ---
XIMENA NOT GIVEN MED NOT AVAILABLE
--- NOTE | 2017-11-21 06:26 | NUR ---
RN TEL CLOSING NOTES ENDORSED TO AM NURSE, PATEINT ASLEEP IN BED WITH NO ACUTE DISTRESS NOTED. NONVERBAL OBTUNDED, ON VENT TRACH SETTINGS ORDERED BY MD SAT ABOVE 98% NO SOB OR ACUTE DISTRESS NOTED, ON TELE MON SR ST , GTUBE FEEDING NEPRO @50 ML/HR NO RESIDUAL NOTED, RT SUBCLAVIAN CATH INTACT ,RIGHT UPPER AV SHUNT INTACT, ALL NEEDS MET, ALL SAFETY MEASURES INITIATED, KCI MATRESS ON, WILL CONTINUE TO MONITOR.
--- NOTE | 2017-11-21 07:30 | NUR ---
OUTPATIENT THERAPIST OPENING NOTES RECEIVED REPORT FROM PM NURSE, PATEIN RESTING IN BED WITH NO ACUTE DISTRESS NOTED. NONVERBAL OBTUNDED, ON VENT TRACH SETTINGS ORDERED BY MD SAT ABOVE 98% NO SOB OR ACUTE DISTRESS NOTED, ON TELE MON SR ST 102, G TUBE FEEDING NEPRO @50 ML/HR , RT SUBCLAVIAN CATH INTACT ,RIGHT UPPER AV SHUNT INTACT, ALL NEEDS MET, ALL SAFETY MEASURES INITIATED, BED IS LOCKED AND IN LOW POSITION.SRX3.WILL CONTINUE TO MONITOR.
--- NOTE | 2017-11-21 07:53 | NUR ---
RECEIVED PT TRACH W/ CHICA #8, ON MECHANICAL VENTILATOR NOTED. PT ASLEEP AT THIS TIME BUT RESPONDS TO STIMULI WHEN SUCTIONED. ORAL AND TRACH SUCTIONED, TRACH SX MODERATE AMOUNT OF , THIN AND THICK , YELLOW AND RED SPECK SECRETIONS. BILATERAL DIMINISHED BREATH SOUNDS HEARD UPON AUSCULTATION. AMBU BAG AT BEDSIDE. VENT ALARM AUDIBLE AND FUNCTIONING. PULSE OXIMETER ATTACHED TO PATIENT. VENT PLUGGED IN RED OUTLET. WILL CONTINUE TO MONITOR PT Addendum: 11/21/17 at 0754 by CAM YOUNG RT Amended: Links added.
[2017-11-21 08:00] VITALS: BP 142/64
[2017-11-21] MEDS: CLOPIDOGREL BISULFATE 75 MG TABLET GT SCH (08:31)
[2017-11-21] MEDS: MULTIVIT, IRON, MIN NO. 8, FA 1 TAB GT SCH (08:31)
[2017-11-21] MEDS: ASCORBIC ACID 500 MG TABLET GT SCH ×2 (08:31→17:50)
[2017-11-21] MEDS: ZINC SULFATE 220 MG CAPSULE GT SCH (08:31)
[2017-11-21] MEDS: ASPIRIN 81 MG TAB.CHEW GT SCH (08:31)
[2017-11-21] MEDS: CALCIUM ACETATE 667 MG TABLET GT SCH ×3 (08:31→17:50)
[2017-11-21] MEDS: VITAMIN B COMP W-C 1 TAB TABLET GT SCH (08:31)
[2017-11-21] MEDS: PANTOPRAZOLE 40 MG VIAL IV SCH (08:31)
[2017-11-21] MEDS: AMIODARONE HCL 200 MG TABLET GT SCH ×2 (08:32→17:51)
[2017-11-21] MEDS: MEROPENEM 500 MG in IV NS 0.9% 50 ML IV SCH ×2 (08:32→20:25)
[2017-11-21] MEDS: DAKINS QUARTER STRENGTH (0.125%) 480 ML BOTTLE TOP SCH (08:33)
[2017-11-21 12:00] VITALS: BP 150/69
--- NOTE | 2017-11-21 14:00 | NUR ---
DISPLAY MANAGER NOTES SEEN BY WITH NO NEW ORDERS.REPORT GIVEN TO LESLEY NEWBERRY FOR ALEJA.PATIENT IS IN STABLE CONDITION.
[2017-11-21 16:00] VITALS: BP 152/68
[2017-11-21 20:00] VITALS: BP 132/77
--- NOTE | 2017-11-21 21:00 | NUR ---
BS 69 GT/FEEDING CONT'D, VS STABLE, FOUND FEEDING OFF, WILL CONT TO MONITOR, LANTUS NOT GIVEN.
[2017-11-21] MEDS: ATORVASTATIN 10 MG TABLET GT SCH (21:06)
[2017-11-21] MEDS: INSULIN GLARGINE, 100 UNIT/ML CARTRIDGE SQ SCH (21:15)
[2017-11-22] VITALS: BP 136/61
[2017-11-22 04:00] VITALS: BP 149/59
[2017-11-22] MEDS: SEVELAMER CARBONATE 0.8 GM POWD.PACK PO SCH ×3 (04:08→21:21)
[2017-11-22] MEDS: NEPRO 1,000 ML BOTTLE GT PRN (04:13)
[2017-11-22] MEDS: BLOOD SUGAR DIAGNOSTIC 1 EACH STRIP IN SCH ×4 (05:05→23:13)
[2017-11-22] MEDS: VANCOMYCIN HCL 125 MG/2.5 ML ORAL.SUSP GT SCH ×4 (05:05→23:26)
[2017-11-22] MEDS: INSULIN REGULAR, HUMAN 100 UNIT/ML 3 ML VIAL SQ PRN ×4 (05:14→23:20)
--- NOTE | 2017-11-22 05:52 | NUR ---
RN TEL CLOSING NOTES ENDORSED REPORT TO AM NURSE, PATEINT RESTING IN BED WITH NO ACUTE DISTRESS NOTED. NONVERBAL OBTUNDED, ON VENT TRACH SETTINGS ORDERED BY MD SAT ABOVE 100% NO SOB OR ACUTE DISTRESS NOTED, ON TELE MON SR ST 90'S, GTUBE FEEDING NEPRO @50 ML/HR NO RESIDUAL NOTED, RT SUBCLAVIAN CATH INTACT ,RIGHT UPPER AV SHUNT INTACT, STARTED ON HD NOW, WILL CONT TO MONITOR VS. ALL NEEDS MET, ALL SAFETY MEASURES INITIATED, KCI MATRESS ON, WILL CONTINUE TO MONITOR.
--- NOTE | 2017-11-22 07:15 | NUR ---
TELE/RN NOTES RECEIVED PT IN BED, OBTUNDED. OINGOING HEMODIALYSIS. WITH INTACT TRACH SHILEY#8 TOLERATING VENT SETTINGS: AC 14; TV 550; FIO2 40. SINUS TACHY HR 100. GT INTACT AND PATENT WITH ONGOING GTF NEPRO AT 50 ML/HR, TOLERATING WELL. WITH INTACT RCHEST WALL SL AND KULDEEP AV SHUNT. FLEXI SEAL IN PLACED. HOB ELEVATED. SAFETY MEASURES AND ASPIRATION PRECAUTION IN PLACED. WILL CONT TO MONITOR
--- NOTE | 2017-11-22 07:40 | NUR ---
RT MALE PT RECEIVED TRACHED AND ON [facility] VENT W ORDERED SETTINGS. ALARMS ARE ON AND AUDIBLE W VENT PLUGGED INTO RED OUTLET AND AMBUBAG @ HOB. PT IS NONVERBAL. MODERATE AMNT OF THICK WHITE SECRETIONS OBSERVED. NO RESPIRATORY DISTRESS NOTED AT THIS TIME. WILL CONTINUE TO MONITOR. Addendum: 11/22/17 at 0952 by CIELO MINOR RT Amended: Links added.
[2017-11-22 08:00] VITALS: BP 118/50
[2017-11-22] MEDS: PANTOPRAZOLE 40 MG VIAL IV SCH (08:26)
[2017-11-22] MEDS: CLOPIDOGREL BISULFATE 75 MG TABLET GT SCH (09:00)
[2017-11-22] MEDS: MULTIVIT, IRON, MIN NO. 8, FA 1 TAB GT SCH (09:00)
[2017-11-22] MEDS: ZINC SULFATE 220 MG CAPSULE GT SCH (09:00)
[2017-11-22] MEDS: CALCIUM ACETATE 667 MG TABLET GT SCH ×3 (09:00→16:45)
[2017-11-22] MEDS: VITAMIN B COMP W-C 1 TAB TABLET GT SCH (09:00)
[2017-11-22] MEDS: ASPIRIN 81 MG TAB.CHEW GT SCH (09:00)
[2017-11-22] MEDS: ASCORBIC ACID 500 MG TABLET GT SCH ×2 (09:00→16:45)
[2017-11-22] MEDS: MEROPENEM 500 MG in IV NS 0.9% 50 ML IV SCH ×2 (09:01→21:21)
[2017-11-22] MEDS: AMIODARONE HCL 200 MG TABLET GT SCH ×2 (09:06→16:46)
[2017-11-22] MEDS: DAKINS QUARTER STRENGTH (0.125%) 480 ML BOTTLE TOP SCH (09:16)
[2017-11-22 12:00] VITALS: BP 119/66
[2017-11-22 16:00] VITALS: BP 130/55
--- NOTE | 2017-11-22 19:18 | NUR ---
RN NOTES PT IN STABLE CONDITION. SAFETY MEASURES AND ASPIRATION PRECAUTION OBSERVED AT ALL TIMES. ALL NEEDS ANTICIPATED. ENDORSED TO PM SHIFT RN FOR ALEJA
--- NOTE | 2017-11-22 19:53 | NUR ---
RN TEL INITIAL NOTES RECEIVED REPORT FROM AM NURSE, PATEINT RESTING IN BED WITH NO ACUTE DISTRESS NOTED. NONVERBAL OBTUNDED, ON VENT TRACH SETTINGS ORDERED BY MD SAT ABOVE 99% NO SOB OR ACUTE DISTRESS NOTED, ON TELE MON SR ST 90'-100'S , GTUBE FEEDING NEPRO @50 ML/HR NO RESIDUAL NOTED, RT SUBCLAVIAN CATH INTACT ,RIGHT UPPER AV SHUNT INTACT, ALL NEEDS MET, ALL SAFETY MEASURES INITIATED, KCI MATRESS ON, WILL CONTINUE TO MONITOR.
[2017-11-22 20:00] VITALS: BP 125/55
[2017-11-22] MEDS: ATORVASTATIN 10 MG TABLET GT SCH (21:21)
[2017-11-22] MEDS: INSULIN GLARGINE, 100 UNIT/ML CARTRIDGE SQ SCH (21:33)
[2017-11-23] VITALS: BP 119/53
[2017-11-23 04:00] VITALS: BP 126/54
[2017-11-23] MEDS: SEVELAMER CARBONATE 0.8 GM POWD.PACK PO SCH ×3 (05:15→21:40)
[2017-11-23] MEDS: BLOOD SUGAR DIAGNOSTIC 1 EACH STRIP IN SCH ×4 (05:15→23:04)
[2017-11-23] MEDS: VANCOMYCIN HCL 125 MG/2.5 ML ORAL.SUSP GT SCH ×4 (05:15→23:05)
[2017-11-23] MEDS: NEPRO 1,000 ML BOTTLE GT PRN (05:16)
[2017-11-23 08:00] VITALS: BP 116/72
[2017-11-23] MEDS: AMIODARONE HCL 200 MG TABLET GT SCH ×2 (09:02→17:40)
[2017-11-23] MEDS: ASPIRIN 81 MG TAB.CHEW GT SCH (09:02)
[2017-11-23] MEDS: CLOPIDOGREL BISULFATE 75 MG TABLET GT SCH (09:03)
[2017-11-23] MEDS: MULTIVIT, IRON, MIN NO. 8, FA 1 TAB GT SCH (09:03)
[2017-11-23] MEDS: VITAMIN B COMP W-C 1 TAB TABLET GT SCH (09:03)
[2017-11-23] MEDS: ZINC SULFATE 220 MG CAPSULE GT SCH (09:03)
[2017-11-23] MEDS: PANTOPRAZOLE 40 MG VIAL IV SCH (09:03)
[2017-11-23] MEDS: ASCORBIC ACID 500 MG TABLET GT SCH ×2 (09:03→17:40)
[2017-11-23] MEDS: CALCIUM ACETATE 667 MG TABLET GT SCH ×3 (09:03→17:40)
[2017-11-23] MEDS: DAKINS QUARTER STRENGTH (0.125%) 480 ML BOTTLE TOP SCH (09:04)
[2017-11-23] MEDS: MEROPENEM 500 MG in IV NS 0.9% 50 ML IV SCH ×2 (09:20→21:40)
--- NOTE | 2017-11-23 11:15 | NUR ---
RN NOTES RECEIVED IN BED, NONVERBAL, OBTUNDED, NO SHORTNESS OF BREATH NOTED, ON VENT SETTINGS ORDERED, SATURATING AT 99%, SUCTIONED FOR AIRWAY PATENCY, SECRETION WHITE TO YELLOWISH, THI IN CONSISTENCY. ON TELE MONITOR SINUS TACHYCARDIA WITH HR AT102, AFEBRILE AT 97.6. SKIN WARM TO TOUCH, GTUBE FEEDING NEPRO @50 ML/HR NO RESIDUAL NOTED, RIGHT CHEST WALL CATH INTACT AND PATENT ON FLUSHING, RIGHT UPPER AV SHUNT INTACT, ALL SAFETY MEASURES INITIATED, KCI MATRESS ON, WILL CONTINUE TO MONITOR.
--- NOTE | 2017-11-23 11:30 | NUR ---
RN NOTES PATIENT HEART RATE DROPPED DOWN TO 35BPM VIA ENTRY LEVEL FINANCIAL ANALYST, PATIENT SATURATING WELL 98% UPON CHECKING, PATIENT IS SUCTIONED AND HEART RATE STARTED TO MOVE UP. PATIENT MONITORED ACCORDINGLY
[2017-11-23 12:00] VITALS: BP_SYST 112; BP_SYST 96; BP_DIAS 45; BP_DIAS 56
[2017-11-23 16:00] VITALS: BP 110/58
--- NOTE | 2017-11-23 17:59 | NUR ---
RT MALE PT RECEIVED TRACHED AND ON MECH VENT W ORDERED SETTINGS. ALARMS ARE ON AND AUDIBLE W VENT PLUGGED INTO RED OUTLET AND AMBUBAG @ HOB. PT IS NONVERBAL. MODERATE AMNT OF THICK WHITE SECRETIONS OBSERVED. NO RESPIRATORY DISTRESS NOTED AT THIS TIME. WILL CONTINUE TO MONITOR.
[2017-11-23] MEDS: INSULIN REGULAR, HUMAN 100 UNIT/ML 3 ML VIAL SQ PRN ×2 (18:01→23:08)
--- NOTE | 2017-11-23 19:42 | NUR ---
RN NOTES PATIENT ENDORSED FOR CONTINUITY OF CARE, NO SHORTNESS OF BREATH NOTED AT THIS TIME, SATURATING AT 97%, NO SIGNS OF PAIN, HEART RATE AT 88 BPM, ALL NEEDS ANTICIPATED, SAFETY MEASURES MAINTAINED.
[2017-11-23 20:00] VITALS: BP 100/57
--- NOTE | 2017-11-23 20:10 | NUR ---
PT RCKNUTSON'D ON MECHANICAL VENT WITH CHARTED SETTINGS. SX DONE. PT TRACH PATENT AND SECURE. AMBU BAG AT BEDSIDE. VENT PLUGGED INTO RED OUTLET. ALARMS ARE ON AND AUDIBLE. WILL CONTINUE TO MONITOR. Addendum: 11/23/17 at 2011 by PAO TONEY RT Amended: Links added.
[2017-11-23] MEDS: ATORVASTATIN 10 MG TABLET GT SCH (21:40)
[2017-11-23] MEDS: INSULIN GLARGINE, 100 UNIT/ML CARTRIDGE SQ SCH (23:07)
[2017-11-24] VITALS (8 sets, daily range): BP systolic 120–147; BP diastolic 53–83
[2017-11-24] MEDS: VANCOMYCIN HCL 125 MG/2.5 ML ORAL.SUSP GT SCH ×3 (05:53→17:23)
[2017-11-24] MEDS: BLOOD SUGAR DIAGNOSTIC 1 EACH STRIP IN SCH ×3 (05:53→17:23)
[2017-11-24] MEDS: SEVELAMER CARBONATE 0.8 GM POWD.PACK PO SCH ×3 (05:53→21:46)
[2017-11-24] MEDS: NEPRO 1,000 ML BOTTLE GT PRN (05:55)
[2017-11-24] MEDS: INSULIN REGULAR, HUMAN 100 UNIT/ML 3 ML VIAL SQ PRN ×2 (06:22→12:33)
[2017-11-24 06:42] LABS: BASOPHILS % (AUTO) 0.1 % (0.0-2.0); CALCIUM, SERUM 8.1 mg/dL (8.5-10.1); CARBON DIOXIDE 26 mmol/L (21-32); CHLORIDE 98 mmol/L (98-107); CREATININE 3.6 mg/dL (0.6-1.3); EOSINOPHILS % (AUTO) 1.5 % (0.0-6.0); GLUCOSE 183 mg/dL (74-106); HEMATOCRIT 21 % (39-51); LYMPHOCYTES # (AUTO) 1.2 /CMM (0.8-4.8); LYMPHOCYTES % (AUTO) 6.5 % (20.0-44.0); MEAN CORPUSCULAR HEMOGLOBIN 31 PG (26.0-33.0); MEAN CORPUSCULAR HGB CONC 32 g/dl (31.0-36.0); MEAN CORPUSCULAR VOLUME 95 fL (80-96); MONOCYTES # (AUTO) 0.8 /CMM (0.1-1.30); MONOCYTES % (AUTO) 4.4 % (2.0-12.0); NEUTROPHILS # (AUTO) 15.9 /CMM (1.8-8.9); NEUTROPHILS % (AUTO) 87.5 % (43.0-81.0); PHOSPHORUS 3.9 mg/dL (2.5-4.9); PLATELET COUNT (AUTO) 299 /CMM (150-450); POTASSIUM 4.1 mmol/L (3.5-5.1); RDW COEFFICIENT OF VARIATION 19.7 (11.5-15.0); RED BLOOD CELL COUNT(AUTO) 2.19 MIL/uL (4.5-6.0); SODIUM SERUM 136 mmol/L (136-145); UREA NITROGEN, BLOOD 69 mg/dL (7-18); WHITE BLOOD COUNT (AUTO) 18.1 K/uL (4.3-11.0)
[2017-11-24 06:48] LABS: HEMOGLOBIN 6.7 g/dL (13.5-17.5)
--- NOTE | 2017-11-24 07:00 | NUR ---
RN NOTES RECEIVED PT ON BED, TRACH/ VENT DEPENDANT, NON VERBAL , OBTUNDED, TRACH SUCTIONING DONE , NO SOB NOTED, ON TELE SR WITH BBB , HR IN 90'S , G TUBE FEEDING NEPRO @50 ML/HR NO RESIDUAL NOTED, RT SUBCLAVIAN CATH INTACT , SR UP x3, CALL LIGHT WITHIN EASY REACH, BED LOCKED AND IN LOWEST POSITION , ALL NEEDS MET, WILL CONTINUE TO MONITOR .
[2017-11-24 07:13] LABS: LYMPHOCYTES % (MANUAL) 6 % (16-48); MONOCYTES % (MANUAL) 7 % (0-11.0); NEUTROPHILS % (MANUAL) 87 (42-76)
--- NOTE | 2017-11-24 07:17 | NUR ---
RT MALE PT RECEIVED TRACHED AND ON MECH VENT W ORDERED SETTINGS. ALARMS ARE ON AND AUDIBLE W VENT PLUGGED INTO RED OUTLET AND AMBUBAG @ HOB. PT IS NONVERBAL. MODERATE AMNT OF THICK YELLOW SECRETIONS OBSERVED. NO RESPIRATORY DISTRESS NOTED AT THIS TIME. WILL CONTINUE TO MONITOR.
--- NOTE | 2017-11-24 07:17 | NUR ---
RT MALE PT RECEIVED TRACHED AND ON [facility] VENT W ORDERED SETTINGS. ALARMS ARE ON AND AUDIBLE W VENT PLUGGED INTO RED OUTLET AND AMBUBAG @ HOB. PT IS NONVERBAL. MODERATE AMNT OF THICK WHITE SECRETIONS OBSERVED. NO RESPIRATORY DISTRESS NOTED AT THIS TIME. WILL CONTINUE TO MONITOR. Addendum: 11/24/17 at 1326 by CIELO MINOR RT Amended: Links added.
--- NOTE | 2017-11-24 07:29 | NUR ---
GRAY MIXING OPERATOR NOTE PT REMAINED STABLE DURING SHIFT. NO ACUTE DISTRESS NOTED. VENT SETTINGS WELL TOLERATED AND SATURATING WELL. SUCTIONED NEEDED. REPOSITIONED Q2H. ISOLATION PRECAUTIONS OBSERVED. RECEIVED CRITICAL RESULTS FOR HEMOGLOBIN 6.7 AND REPORTED TO AM RN. HOB ELEVATED AND ON ASPIRATION PRECAUTIONS. TREATMENT PERFORMED ORDERED. ENDORSED TO NEXT SHIFT FOR CONTINUITY OF CARE.
--- NOTE | 2017-11-24 08:30 | NUR ---
RN NOTES DR OLIVA NOTIFED REGARDING H/H 6.10/04 AND WBC 18.1 , NEW ORDER RECEIVED . CONTINUE TO MONITOR .
[2017-11-24] MEDS: PANTOPRAZOLE 40 MG VIAL IV SCH (09:06)
[2017-11-24] MEDS: VITAMIN B COMP W-C 1 TAB TABLET GT SCH (09:06)
[2017-11-24] MEDS: ZINC SULFATE 220 MG CAPSULE GT SCH (09:06)
[2017-11-24] MEDS: DAKINS QUARTER STRENGTH (0.125%) 480 ML BOTTLE TOP SCH (09:07)
[2017-11-24] MEDS: CALCIUM ACETATE 667 MG TABLET GT SCH ×3 (09:07→16:51)
[2017-11-24] MEDS: ASPIRIN 81 MG TAB.CHEW GT SCH (09:07)
[2017-11-24] MEDS: MULTIVIT, IRON, MIN NO. 8, FA 1 TAB GT SCH (09:07)
[2017-11-24] MEDS: AMIODARONE HCL 200 MG TABLET GT SCH ×2 (09:07→16:51)
[2017-11-24] MEDS: CLOPIDOGREL BISULFATE 75 MG TABLET GT SCH (09:07)
[2017-11-24] MEDS: ASCORBIC ACID 500 MG TABLET GT SCH ×2 (09:07→16:51)
[2017-11-24] MEDS: MEROPENEM 500 MG in IV NS 0.9% 50 ML IV SCH ×2 (09:09→21:45)
--- NOTE | 2017-11-24 14:28 | NUR ---
RN NOTES PT RECEIVING ONE UNIT OF PRBC WITH DIALYSIS , VSS STABLE , TOLERATING WELL, NO DISTRESS NOTED AT THIS TIME .CONTINUE TO MONITOR .
--- NOTE | 2017-11-24 18:37 | NUR ---
RN NOTES PT STABLE, TRACH CARE DONE, TOLERATING TF WELL , NO SIGNIFICANT CHANGES NOTED ON THIS SHIFT ,WILL ENDOSE TO RETAIL CUSTODIAL ASSOCIATE NURSE FOR CONTINUITY OF CARE
--- NOTE | 2017-11-24 20:00 | NUR ---
AUTOMATION CONTROLS ENGINEER NOTES RECEIVED PT IN BED, OBTUNDED. NO S/S OF ACUTE DISTRESS OR PAIN. TELE READS SR/ST AT 101 BPM WITH BBB. ON VENT VIA SHILEY 8 TRACH AT AC14, TV 550, FIO2 40%, PEEP 0, TOLERATING WELL, SUCTIONED ORALLY AND TRACH. ANURIC WITH HD. FLEXISEAL IN PLACE DRAINING TO LIQUID BROWN STOOL. MULTIPLE SEVERE WOUNDS. GT IN PLACE WITH GTF OF NEPRO AT 45 ML/HR, TOLERATING WELL, NO GASTRIC RESIDUAL. KULDEEP AV SHUNT AND RIGHT SUBCLAVIAN TLC, RUNNING NS AT TKO. TURNED AND REPOSITIONED, EXTREMITIES OFFLOADED. HOB ELEVATED, SIDE RAILS X2.
[2017-11-24] MEDS: ATORVASTATIN 10 MG TABLET GT SCH (21:48)
[2017-11-24] MEDS: INSULIN GLARGINE, 100 UNIT/ML CARTRIDGE SQ SCH (22:08)
[2017-11-24 23:13] LABS: HEMOGLOBIN 8.3 g/dL (13.5-17.5)
[2017-11-25] VITALS: BP 139/83
[2017-11-25] MEDS: BLOOD SUGAR DIAGNOSTIC 1 EACH STRIP IN SCH ×5 (00:34→23:56)
[2017-11-25] MEDS: VANCOMYCIN HCL 125 MG/2.5 ML ORAL.SUSP GT SCH ×5 (00:34→23:57)
[2017-11-25] MEDS: NEPRO 1,000 ML BOTTLE GT PRN (00:34)
[2017-11-25] MEDS: INSULIN REGULAR, HUMAN 100 UNIT/ML 3 ML VIAL SQ PRN ×5 (01:00→23:59)
[2017-11-25 04:00] VITALS: BP 147/74
[2017-11-25] MEDS: SEVELAMER CARBONATE 0.8 GM POWD.PACK PO SCH ×3 (05:19→20:51)
--- NOTE | 2017-11-25 07:15 | NUR ---
TELE/RN INITIAL NOTES RECEIVED PT IN BED, OBTUNDED. WITH INTACT TRACH SHILEY8, TOLERATING VENT SETTINGS AC 14; TV 550; FIO2 40, SATURATING 100%. WITH INTACT AND IN PLACED FLEXISEAL. WITH ONGOING IVF NS@KVO ON RSUBCLAVIAN TLC. WITH INTACT DRESSING ON KULDEEP AVFISTULA.WITH INTACT AND IN PLACED GT, WITH ONGOING GTF NEPRO @45ML/HR, TOLERATING WELL, NO RESIDUAL NOTED. HOB ELEVATED. SAFETY AND ASPIRATION PRECAUTION IN PLACED. WILL CONT TO MONITOR
--- NOTE | 2017-11-25 07:17 | NUR ---
RT MALE PT RECEIVED TRACHED (CUFFED) AND ON [facility] VENT W ORDERED SETTINGS. ALARMS ARE ON AND AUDIBLE W VENT PLUGGED INTO RED OUTLET AND AMBUBAG @ HOB. PT IS AWAKE NONVERBAL. MODERATE AMNT OF THICK WHITE/YELLOW SECRETIONS SUCTIONED. NO RESPIRATORY DISTRESS NOTED AT THIS TIME. WILL CONTINUE TO MONITOR. Addendum: 11/25/17 at 0826 by CIELO MINOR RT Amended: Links added.
[2017-11-25 07:34] LABS: CALCIUM, SERUM 8.4 mg/dL (8.5-10.1); CARBON DIOXIDE 29 mmol/L (21-32); CHLORIDE 101 mmol/L (98-107); CREATININE 3.1 mg/dL (0.6-1.3); GLUCOSE 174 mg/dL (74-106); MAGNESIUM 2.9 mg/dL (1.8-2.4); PHOSPHORUS 3.3 mg/dL (2.5-4.9); POTASSIUM 3.8 mmol/L (3.5-5.1); SODIUM SERUM 138 mmol/L (136-145); UREA NITROGEN, BLOOD 51 mg/dL (7-18)
[2017-11-25 07:54] LABS: BASOPHILS % (AUTO) 0.3 % (0.0-2.0); EOSINOPHILS % (AUTO) 3.2 % (0.0-6.0); HEMATOCRIT 25 % (39-51); HEMOGLOBIN 8.2 g/dL (13.5-17.5); LYMPHOCYTES % (AUTO) 6.8 % (20.0-44.0); MEAN CORPUSCULAR HEMOGLOBIN 30 PG (26.0-33.0); MEAN CORPUSCULAR HGB CONC 33 g/dl (31.0-36.0); MEAN CORPUSCULAR VOLUME 91 fL (80-96); MONOCYTES # (AUTO) 0.6 /CMM (0.1-1.30); MONOCYTES % (AUTO) 4.2 % (2.0-12.0); NEUTROPHILS # (AUTO) 12.1 /CMM (1.8-8.9); NEUTROPHILS % (AUTO) 85.5 % (43.0-81.0); PLATELET COUNT (AUTO) 282 /CMM (150-450); RDW COEFFICIENT OF VARIATION 20.8 (11.5-15.0); RED BLOOD CELL COUNT(AUTO) 2.77 MIL/uL (4.5-6.0); WHITE BLOOD COUNT (AUTO) 14.2 K/uL (4.3-11.0)
[2017-11-25 08:00] VITALS: BP 150/66
[2017-11-25] MEDS: PANTOPRAZOLE 40 MG VIAL IV SCH (08:59)
[2017-11-25] MEDS: CALCIUM ACETATE 667 MG TABLET GT SCH ×3 (08:59→16:42)
[2017-11-25] MEDS: ZINC SULFATE 220 MG CAPSULE GT SCH (08:59)
[2017-11-25] MEDS: ASPIRIN 81 MG TAB.CHEW GT SCH (09:00)
[2017-11-25] MEDS: ASCORBIC ACID 500 MG TABLET GT SCH ×2 (09:00→16:42)
[2017-11-25] MEDS: AMIODARONE HCL 200 MG TABLET GT SCH ×2 (09:00→16:43)
[2017-11-25] MEDS: VITAMIN B COMP W-C 1 TAB TABLET GT SCH (09:00)
[2017-11-25] MEDS: CLOPIDOGREL BISULFATE 75 MG TABLET GT SCH (09:00)
[2017-11-25] MEDS: MULTIVIT, IRON, MIN NO. 8, FA 1 TAB GT SCH (09:00)
[2017-11-25] MEDS: MEROPENEM 500 MG in IV NS 0.9% 50 ML IV SCH ×2 (09:04→20:51)
[2017-11-25] MEDS: DAKINS QUARTER STRENGTH (0.125%) 480 ML BOTTLE TOP SCH (09:08)
[2017-11-25 12:00] VITALS: BP 147/80
[2017-11-25 16:00] VITALS: BP 124/64
--- NOTE | 2017-11-25 19:12 | NUR ---
PT RCVD TRACH SHILEY 8 ON MECHANICAL VENT WITH NOTED SETTINGS. PT IS NON VERBAL , RESPOND TO STIMULI WHEN SUCTIONED. SUCTIONED MODERATE AMOUNT OF PINK TINGED SECRETIONS. PT TRACH PATENT AND SECURE. ROLLER MAN DONE. NO RESPIRATORY DISTRESS NOTED AT THIS TIME. AMBU BAG AT BEDSIDE. VENT PLUGGED INTO RED OUTLET. ALARMS ARE ON AND AUDIBLE. WILL CONTINUE TO MONITOR.
--- NOTE | 2017-11-25 19:30 | NUR ---
TELE/RN NOTES: RECEIVED PT IN BED, OBTUNDED. NO FACIAL GRIMACES OR MOANING NOTED.ON TELE MONITOR W/ SR 85. MECHANICAL VENTILATOR SHILEY8, TOLERATING VENT SETTINGS AC 14; TV 550; FIO2 40, SATURATING 100%. FLEXI SEAL IN PLACE DRAINING W/ BROWISH COLOR DRAININGE. ONGOING IVF NS @ KVO ON RT. SUBCLAVIAN TLC. WITH INTACT DRESSING ON KULDEEP AV FISTULA.WITH INTACT AND IN PLACED GT, WITH ONGOING GTF NEPRO @45ML/HR, TOLERATING WELL, NO RESIDUAL NOTED. HOB ELEVATED. SAFETY AND ASPIRATION PRECAUTION IN PLACED. WILL CONT TO MONITOR
--- NOTE | 2017-11-25 19:38 | NUR ---
RN NOTES PT IN STABLE CONDITION NO ACUTE DISTRESS NOTED THROUGH OUT SHIFT. SAFETY AND ASPIRATION PRECAUTION OBSERVED AT ALL TIMES. ALL NEEDS ANTICIPATED. ENDORSED TO PM SHIFT RN FOR ALEJA
[2017-11-25 20:00] VITALS: BP 157/64
[2017-11-25] MEDS: ATORVASTATIN 10 MG TABLET GT SCH (21:05)
[2017-11-25] MEDS: INSULIN GLARGINE, 100 UNIT/ML CARTRIDGE SQ SCH (21:34)
[2017-11-26] VITALS: BP 149/52
[2017-11-26] MEDS: NEPRO 1,000 ML BOTTLE GT PRN ×2 (00:25→23:55)
[2017-11-26 04:00] VITALS: BP 154/81
[2017-11-26] MEDS: SEVELAMER CARBONATE 0.8 GM POWD.PACK PO SCH ×3 (05:00→21:12)
[2017-11-26] MEDS: VANCOMYCIN HCL 125 MG/2.5 ML ORAL.SUSP GT SCH ×4 (06:34→23:50)
[2017-11-26] MEDS: BLOOD SUGAR DIAGNOSTIC 1 EACH STRIP IN SCH ×4 (06:34→23:49)
[2017-11-26] MEDS: INSULIN REGULAR, HUMAN 100 UNIT/ML 3 ML VIAL SQ PRN ×3 (06:36→17:35)
--- NOTE | 2017-11-26 07:51 | NUR ---
TELE/RN NOTES: REPORT GIVEN TO NEXT SHIFT NURSE FOR ALEJA.
--- NOTE | 2017-11-26 07:56 | NUR ---
RT RECEIVED PT TRACH VENT DEPENDENT WITH NOTED SETTINGS. TECHNICAL STAFF ENGINEER DONE AND TRACH IS SECURE. VENT ALARMS CHECKED AND AUDIBLE. VENT PLUGGED IN RED OUTLET. SX WITH MOD THK YELLOW SECRETIONS. AMBU BAG NOTED HOB. PT TOLERATING SETTINGS WELL, NO SOB OR RESP DISTRESS NOTED. PT ON CONTINUOUS PULSE OX. WILL CONTINUE TO MONITOR T/O SHIFT.
[2017-11-26 08:00] VITALS: BP 157/56
[2017-11-26] MEDS: PANTOPRAZOLE 40 MG VIAL IV SCH (08:55)
[2017-11-26] MEDS: CLOPIDOGREL BISULFATE 75 MG TABLET GT SCH (08:56)
[2017-11-26] MEDS: ZINC SULFATE 220 MG CAPSULE GT SCH (08:56)
[2017-11-26] MEDS: CALCIUM ACETATE 667 MG TABLET GT SCH ×3 (08:56→17:32)
[2017-11-26] MEDS: MULTIVIT, IRON, MIN NO. 8, FA 1 TAB GT SCH (08:56)
[2017-11-26] MEDS: ASPIRIN 81 MG TAB.CHEW GT SCH (08:56)
[2017-11-26] MEDS: ASCORBIC ACID 500 MG TABLET GT SCH ×2 (08:56→17:32)
[2017-11-26] MEDS: AMIODARONE HCL 200 MG TABLET GT SCH ×2 (08:56→17:32)
[2017-11-26] MEDS: VITAMIN B COMP W-C 1 TAB TABLET GT SCH (08:56)
[2017-11-26] MEDS: DAKINS QUARTER STRENGTH (0.125%) 480 ML BOTTLE TOP SCH (08:57)
[2017-11-26 12:00] VITALS: BP 131/53
[2017-11-26] MEDS: MEROPENEM 500 MG in IV NS 0.9% 50 ML IV SCH ×2 (12:55→21:12)
[2017-11-26 16:00] VITALS: BP 136/63
[2017-11-26] MEDS: LACTOBACILLUS RHAMNOSUS GG 1 EACH CAP.SPRINK PO SCH (17:32)
[2017-11-26 20:00] VITALS: BP 128/83
[2017-11-26] MEDS: ATORVASTATIN 10 MG TABLET GT SCH (21:13)
[2017-11-26] MEDS: INSULIN GLARGINE, 100 UNIT/ML CARTRIDGE SQ SCH (22:00)
[2017-11-27] VITALS (8 sets, daily range): BP systolic 114–161; BP diastolic 40–91
[2017-11-27] MEDS: BLOOD SUGAR DIAGNOSTIC 1 EACH STRIP IN SCH ×3 (05:36→17:38)
[2017-11-27] MEDS: SEVELAMER CARBONATE 0.8 GM POWD.PACK PO SCH ×3 (05:36→20:21)
[2017-11-27] MEDS: VANCOMYCIN HCL 125 MG/2.5 ML ORAL.SUSP GT SCH ×3 (05:36→17:37)
--- NOTE | 2017-11-27 05:54 | NUR ---
PATIENT RECEIVED TRACHED ON MECHANICAL VENTILATION WITH CURRENT AC SETTINGS. VENT PLUGGED INTO RED OUTLET. AMBU BAG @ HOB. ALARMS ON AND AUDIBLE. SX DONE, TRACH SECURED AND PATENT AT ALL TIMES. MODERATE THICK WHITE SECRETIONS NOTED. NO DISTRESS NOTED T/O SHIFT. JOSHUA/LAYLA REPLACED. Addendum: 11/27/17 at 0554 by ELINOR BEDOLLA RT Amended: Links added.
[2017-11-27 06:43] LABS: BASOPHILS # (AUTO) 0.1 /CMM (0.0-0.2); BASOPHILS % (AUTO) 1.1 % (0.0-2.0); HEMATOCRIT 25 % (39-51); LYMPHOCYTES % (AUTO) 10.1 % (20.0-44.0); MEAN CORPUSCULAR HEMOGLOBIN 30 PG (26.0-33.0); MEAN CORPUSCULAR HGB CONC 32 g/dl (31.0-36.0); MEAN CORPUSCULAR VOLUME 93 fL (80-96); MONOCYTES # (AUTO) 0.5 /CMM (0.1-1.30); MONOCYTES % (AUTO) 4.8 % (2.0-12.0); NEUTROPHILS # (AUTO) 7.6 /CMM (1.8-8.9); PLATELET COUNT (AUTO) 218 /CMM (150-450); RDW COEFFICIENT OF VARIATION 20.5 (11.5-15.0); RED BLOOD CELL COUNT(AUTO) 2.69 MIL/uL (4.5-6.0); WHITE BLOOD COUNT (AUTO) 9.6 K/uL (4.3-11.0)
[2017-11-27 07:02] LABS: CALCIUM, SERUM 8.4 mg/dL (8.5-10.1); CARBON DIOXIDE 30 mmol/L (21-32); CHLORIDE 101 mmol/L (98-107); CREATININE 3.1 mg/dL (0.6-1.3); GLUCOSE 136 mg/dL (74-106); POTASSIUM 4.1 mmol/L (3.5-5.1); SODIUM SERUM 140 mmol/L (136-145); UREA NITROGEN, BLOOD 59 mg/dL (7-18)
--- NOTE | 2017-11-27 07:30 | NUR ---
BUTTER WRAPPER OPENING NOTES RECEIVED REPORT FROM PM NURSE, PATEIN RESTING IN BED WITH NO ACUTE DISTRESS NOTED. NONVERBAL OBTUNDED, ON VENT TRACH SETTINGS ORDERED BY MD SAT ABOVE 98% NO SOB OR ACUTE DISTRESS NOTED, ON TELE MON SR ST 98, G TUBE FEEDING NEPRO @45 ML/HR , RT SUBCLAVIAN CATH INTACT ,RIGHT UPPER AV SHUNT INTACT, ALL NEEDS MET, ALL SAFETY MEASURES INITIATED, BED IS LOCKED AND IN LOW POSITION.SRX3.WILL CONTINUE TO MONITOR
[2017-11-27] MEDS: PANTOPRAZOLE 40 MG VIAL IV SCH (08:43)
[2017-11-27] MEDS: ASPIRIN 81 MG TAB.CHEW GT SCH (08:43)
[2017-11-27] MEDS: ASCORBIC ACID 500 MG TABLET GT SCH ×2 (08:43→17:37)
[2017-11-27] MEDS: CALCIUM ACETATE 667 MG TABLET GT SCH ×3 (08:43→17:37)
[2017-11-27] MEDS: MULTIVIT, IRON, MIN NO. 8, FA 1 TAB GT SCH (08:43)
[2017-11-27] MEDS: CLOPIDOGREL BISULFATE 75 MG TABLET GT SCH (08:43)
[2017-11-27] MEDS: VITAMIN B COMP W-C 1 TAB TABLET GT SCH (08:44)
[2017-11-27] MEDS: LACTOBACILLUS RHAMNOSUS GG 1 EACH CAP.SPRINK PO SCH ×2 (08:44→17:37)
[2017-11-27] MEDS: ZINC SULFATE 220 MG CAPSULE GT SCH (08:44)
[2017-11-27] MEDS: AMIODARONE HCL 200 MG TABLET GT SCH ×2 (08:44→17:38)
[2017-11-27] MEDS: MEROPENEM 500 MG in IV NS 0.9% 50 ML IV SCH ×2 (08:44→20:20)
[2017-11-27] MEDS: DAKINS QUARTER STRENGTH (0.125%) 480 ML BOTTLE TOP SCH (08:49)
[2017-11-27] MEDS ORDERED: MERO500V IV (10:24)
[2017-11-27] MEDS ORDERED: LACT1CAP72 PO (10:24)
[2017-11-27] MEDS ORDERED: VANC125C11 GT (10:24)
--- NOTE | 2017-11-27 12:00 | NUR ---
CARE CONNECTOR NOTES SEEN BY UPDATED ABOUT PATIENT CONDITION GOT ORDER FOR D/C TODAY.CALL MADE TO PHARMACY FOR VANCOMYCIN PATIENT ALLERGIC TO VANCOMYCIN, PER [facility] AWARE.OK TO GIVE IT.WILL CONTINU ETO MONITOR.
[2017-11-27] MEDS: INSULIN REGULAR, HUMAN 100 UNIT/ML 3 ML VIAL SQ PRN ×2 (12:34→17:55)
--- NOTE | 2017-11-27 14:54 | NUR ---
LASER TECHNICIAN NOTES REPORT GIVE TO CORINNE NEWBERRY IN [facility] .MADE AWARE ABOUT ISOLATION ACINETOBACTER BAUMANNII/HAEMOL,PROVIDENCIA STUARTTI AND ANTIBIOTIC THERAPY TO BE CONTINUED WITH .FAXED THE CULTURE REPORT PER REQUEST.MADE AWARE ETA.AND F/U APPOINTMENT WITH NEPHROLOGY.INFORMATION ATTACHED IN THE FACE SHEET.
--- NOTE | 2017-11-27 19:25 | NUR ---
STRAIGHT TRUCK DRIVER CLOSING NOTES PATEIN RESTING IN BED WITH NO ACUTE DISTRESS NOTED. NONVERBAL OBTUNDED, ON VENT TRACH SETTINGS ORDERED BY MD SAT ABOVE 98% NO SOB OR ACUTE DISTRESS NOTED, ON TELE MON SR ST 86, G TUBE FEEDING NEPRO @45 ML/HR , RT SUBCLAVIAN CATH INTACT ,RIGHT UPPER AV SHUNT INTACT, ALL NEEDS MET, ALL SAFETY MEASURES INITIATED, BED IS LOCKED AND IN LOW POSITION.SRX3.ENDORSED TO PM NURSE FOR DISCHARGE THE PATIENT.
--- NOTE | 2017-11-27 19:50 | NUR ---
BALL WARPER TENDER OPENING NOTES RECEIVED REPORT FROM PM NURSE, PATEIN RESTING IN BED WITH NO ACUTE DISTRESS NOTED. NONVERBAL OBTUNDED, ON VENT TRACH SETTINGS ORDERED BY MD SAT ABOVE 100% NO SOB OR ACUTE DISTRESS NOTED, ON TELE MON SR ST 90'S, G TUBE FEEDING NEPRO @45 ML/HR , RT SUBCLAVIAN CATH INTACT ,RIGHT UPPER AV SHUNT INTACT, FOR DC REPORT GIVEN BY AM RN, AWAITING JUNIOR PHP DEVELOPER 1930PM. ALL NEEDS MET, ALL SAFETY MEASURES INITIATED, BED IS LOCKED AND IN LOW POSITION.SRX3.WILL CONTINUE TO MONITOR
[2017-11-27] MEDS: ATORVASTATIN 10 MG TABLET GT SCH (21:28)
[2017-11-27] MEDS: INSULIN GLARGINE, 100 UNIT/ML CARTRIDGE SQ SCH (21:54)
--- NOTE | 2017-11-27 21:54 | NUR ---
PT PICKED UP BY AMBULANCE W/RT, REPORT GIVEN, ALL MEDS AND IV GIVEN, V/S STABLE, ALL BELONGING GIVEN TO TRANSPORT.
== END 2017-11-27 22:05 | DRG 853 ==
LOC: ER 14:39 → ICU 16:56 → TELE-TD 11-14 13:38 → TELE1 11-20 17:20
PROVIDERS: ADMIT Registered Nurse; ATTEND Registered Nurse
PROC: 5A1955Z Respiratory Ventilation, Greater than 96 Consecutive Hours (ICD-10-PCS; principal; 2017-11-11)
PROC: 0QB10ZZ Excision of Sacrum, Open Approach (ICD-10-PCS; 2017-11-13)
PROC: 0KBD0ZZ Excision of Left Hand Muscle, Open Approach (ICD-10-PCS; 2017-11-13)
PROC: 0KB90ZZ Excision of Right Lower Arm and Wrist Muscle, Open Approach (ICD-10-PCS; 2017-11-13)
PROC: 0JB70ZZ Excision of Back Subcutaneous Tissue and Fascia, Open Approach (ICD-10-PCS; 2017-11-13)
PROC: 0KBP0ZZ Excision of Left Hip Muscle, Open Approach (ICD-10-PCS; 2017-11-13)
PROC: 0KBN0ZZ Excision of Right Hip Muscle, Open Approach (ICD-10-PCS; 2017-11-13)
PROC: 30233N1 Transfusion of Nonautologous Red Blood Cells into Peripheral Vein, Percutaneous Approach (ICD-10-PCS; 2017-11-14)
DX: A41.9 Sepsis, unspecified organism (principal); L89.313 Pressure ulcer of right buttock, stage 3; L89.324 Pressure ulcer of left buttock, stage 4; L89.013 Pressure ulcer of right elbow, stage 3; L89.113 Pressure ulcer of right upper back, stage 3; L89.154 Pressure ulcer of sacral region, stage 4; R65.21 Severe sepsis with septic shock; N18.6 End stage renal disease; E43 Unspecified severe protein-calorie malnutrition; J96.21 Acute and chronic respiratory failure with hypoxia; R53.2 Functional quadriplegia; J15.6 Pneumonia due to other Gram-negative bacteria; G93.49 Other encephalopathy; Z99.11 Dependence on respirator [ventilator] status; I13.2 Hypertensive heart and chronic kidney disease with heart failure and with stage 5 chronic kidney disease, or end stage renal disease; N39.0 Urinary tract infection, site not specified; D62 Acute posthemorrhagic anemia; Z99.2 Dependence on renal dialysis; Z93.0 Tracheostomy status; E11.22 Type 2 diabetes mellitus with diabetic chronic kidney disease; Z93.1 Gastrostomy status; R13.10 Dysphagia, unspecified; D63.1 Anemia in chronic kidney disease; E11.65 Type 2 diabetes mellitus with hyperglycemia; F29 Unspecified psychosis not due to a substance or known physiological condition; Z79.4 Long term (current) use of insulin; Z79.899 Other long term (current) drug therapy; I48.91 Unspecified atrial fibrillation; S31.109A Unspecified open wound of abdominal wall, unspecified quadrant without penetration into peritoneal cavity, initial encounter; X58.XXXA Exposure to other specified factors, initial encounter; Y92.9 Unspecified place or not applicable; J45.909 Unspecified asthma, uncomplicated; I70.0 Atherosclerosis of aorta; I45.10 Unspecified right bundle-branch block; L89.620 Pressure ulcer of left heel, unstageable; L89.520 Pressure ulcer of left ankle, unstageable; L89.890 Pressure ulcer of other site, unstageable; L89.510 Pressure ulcer of right ankle, unstageable; Z88.1 Allergy status to other antibiotic agents
CPT/HCPCS: 31720; 36415; 36600; 71045-TC; 80048-TC; 80061-TC; 80076-TC; 80202-TC; 82272-TC; 82533; 82728-TC; 82803-TC; 82962-TC; 83540-TC; 83605-TC; 83690-TC; 83735-TC; 84100-TC; 84439-TC; 84443-TC; 84484-TC; 85025-TC; 85027-TC; 85610-TC; 85730-TC; 86850-TC; 86921-TC; 87040-TC; 87070-TC; 87081-TC; 87186-TC; 90935-TC; 94003-TC; 94760-TC; 94762-TC; 94799-TC; A4216; A4217; A4606; A6248; A6253; A6402; A6403; A7526; C1751; C9113; J0692; J0885; J1720; J1815; J2185; J2543; J3370; J3490; J7030; J7040; J7050; J7060; P9016-BL; Z7610